=== PATIENT | female | born 1985 | race Caucasian/White ===

== ENCOUNTER 2018-02-01 10:37 | Emergency (ER) | payer MEDICAID, SELFPAY ==
[2018-02-01 10:39] VITALS: BP 91/56; PULSE 97; RESP 12; TEMP 36.4; BMI 17.6
[2018-02-01 11:33] VITALS: RESP 14
[2018-02-01 11:58] LABS: Pregnancy, Serum, hCG Quali. NEGATIVE Negative (0-9 Nonpreg)
[2018-02-01] MEDS: Dicyclomine 10 MG Capsule 20 MG PO (12:54)
[2018-02-01 13:01] LABS: Bedside Glucose 75 mg/dL (70-110)
--- NOTE | 2018-02-01 13:05 | RAD_ITS ---
STUDY: X-RAY - ACUTE ABDOMINAL SERIES REASON FOR EXAM: Female, 32 years old. Left lower quadrant pain with abdominal distention and constipation. TECHNIQUE: Single view of the chest. Supine, and erect view(s) of the abdomen were obtained. COMPARISON: None. FINDINGS: Hyperinflation. There is a 1.6 cm nodular density projected over the right mid lung. This most likely represents a nipple shadow. A faint nodular densities also seen overlying the left mid chest. Normal size heart. Normal mediastinum and osiris. Normal visualized pulmonary arteries. Normal visualized aortic arch and descending thoracic aorta. There is a moderate amount of colonic fecal material. I suspect right intrarenal calculi. The largest calculus measures 3.6 mm. Normal visualized osseous structures. RAD/Acute Abdomen Inc Chest IMPRESSION: Hyperinflation. Findings suggestive of bilateral nipple shadows. Moderate amount of fecal material is seen in the colon. Findings suggestive of right intrarenal calculi. Electronically Signed: Brian Mabry MD at 13:37 EDT Tel [phone], Service support ,
--- NOTE | 2018-02-01 14:59 | ED.DCSUM_ITS ---
- ER Visit Summary Date of Service: 02/01/18 Chief Complaint: Left lower quadrant pain History of Present Illness: The patient is a 32 F who presents with intermittent left lower quadrant pain. Severe the past couple of days. 6 weeks ago she was in [facility] had workup which included blood work, test, UA and CT of the abdomen pelvis. There was thought she may have had a UTI. Last normal menstrual period on January 03. She is sexually active and uses no form of control. She has history of renal calculi. She states she has not had a bowel movement past 3 days. Review of systems otherwise negative. Physical Examination: Patient is a thin 32-year-old woman with normal vital signs patient afebrile. Head is atraumatic normocephalic. Pupils are equal round reactive. Extraocular muscles are intact. TMs are pearly white with landmarks noted. Nares patent with no drainage. Posterior pharynx without erythema or exudate. Uvula is midline. There is no dysphonia or dysphasia. Trachea is midline. There is no stridor with auscultation of the neck. Heart is regular without murmur, gallop or rub. S1 and S2 are normal. Lungs are clear to auscultation with good movement of air bilaterally. Abdomen is tympanitic with decreased bowel sounds and tenderness greater left lower quadrant than anywhere else. There is no CVA tenderness noted. There is no umbilical or inguinal hernia or inguinal lymphadenopathy. No skin lesions are noted. Test Results: Serum test was negative. Three-view x-ray of the abdomen reveals significant fecal stasis Emergency Department Course and Treatment: Since patient reports pain for greater than 6 weeks with negative workup at outside facility including CAT scan believe this represents obstipation/constipation. Abdominal series was obtained and confirm suspicion. Treatment Plan: Mag citrate 10 ounces followed 4 hours later by a glass of MiraLAX every hour until patient has results Disposition: Discharged to home Impression: Intermittent acute abdominal pain secondary to constipation This note was generated with [employer] dictation software. It may contain incorrect words, spelling, and punctuation that were not noted in review of the chart prior to signing ED Disposition - Plan for ED Patient: Disposition: Home or Assisted Living Chief Complaint: Abd Pain Instructions: ED Constipation Referrals: Care Physician,No Primary [Primary Care Provider] - Additional Instructions: Drink 10 ounces of mag citrate. 4 hours after drinking the magnesium citrate drink a glass of MiraLAX. Drink a glass of MiraLAX every 1 hour while awake until you have results.
[2018-02-01 15:19] VITALS: RESP 17
== END 2018-02-01 15:20 | disposition home or self-care (01) ==
PROVIDERS: Emergency Provider Emergency Medicine
DX: K59.00 Constipation, unspecified (principal); Z87.442 Personal history of urinary calculi; Z72.0 Tobacco use
CPT/HCPCS: 74022; 82962; 84703; 99283; A4216

== ENCOUNTER → 2018-05-03 15:15 | Outpatient (CLI) | payer MEDICAID, SELFPAY ==
[2018-05-03 09:24] VITALS: BMI 17.4
[2018-05-03 16:00] LABS: Bacteria 0 SEEN /hpf (None Seen); Mucous, Urine 0 SEEN /hpf (<or=2+); Red Blood Cells-Urine 0 SEEN /hpf (0-5)
[2018-05-03 16:20] LABS: Color, Urine Yellow (Yellow); Glucose, Dipstick Normal (Normal); Ketone-Dipstick Negative (Negative); Leukocyte Esterase-Dipstick 100 /ul (Negative); Nitrite-Dipstick Negative (Negative); Occult Blood-Urine Negative /ul (Negative); Protein-Dipstick Negative (Negative); Urine Bilirubin Dipstick Negative (Negative); Urine Clarity Clear (Clear); Urine Urobilinogen Normal (Normal)
[2018-05-03 16:30] LABS: Squamous Epithelial Cells - UA 0-5 SEEN /hpf (5-10); White Blood Cells 0-5 SEEN /hpf (0-5)
== END ==
PROVIDERS: Referring Provider Physician Assistant Surgical; Visit Provider Physician Assistant Surgical
DX: R39.15 Urgency of urination (principal)
CPT/HCPCS: 81001; 87086

== ENCOUNTER → 2018-07-11 | Outpatient (CLI) | payer MEDICAID, SELFPAY ==
[2018-07-11 16:44] VITALS: BMI 17.4
[2018-07-14 16:02] LABS: HPV APTIMA, High Risk Negative (Negative)
== END | disposition home or self-care (01) ==
PROVIDERS: Referring Provider Nurse Practitioner Women's Health; Visit Provider Nurse Practitioner Women's Health
DX: Z12.4 Encounter for screening for malignant neoplasm of cervix (principal)
CPT/HCPCS: 87624; 88175; G0145

== ENCOUNTER → 2018-07-18 12:56 | Outpatient (CLI) | payer MEDICAID, SELFPAY ==
[2018-07-11 14:38] VITALS: BMI 16.9
[2018-07-11 16:44] VITALS: BMI 17.4
--- NOTE | 2018-07-18 12:58 | US_ITS ---
STUDY: ULTRASOUND TRANSVAGINAL CLINICAL: Female, 32 years old. Pelvic pain, left pelvic, 7 months TECHNIQUE: Transvaginal and transabdominal (Transvaginal imaging performed for enhanced visualization of uterus and endometrium, and posterior adnexal structures). COMPARISON: None. FINDINGS: The uterus is anteverted, 9.8 x 7.2 x 4.9 cm. Normal myometrial echotexture. Endometrium 13 mm, normal echotexture. There is no adnexal or cul-de-sac free fluid. Right ovary 38 x 41 x 31 mm, normal echotexture and vascularity, small physiologic follicles, dominant follicle 2.3 cm with simple cystic features. There is no right adnexal mass or suspicious cyst. Left ovary 33 x 24 x 17 mm, small physiologic follicles, no dominant follicle or cyst, normal vascularity. There is no left adnexal mass or suspicious cyst. US/Transvaginal Non- IMPRESSION: No acute intrapelvic process is evident. Normal features of the left ovary and adnexa. Dominant physiologic follicle of the right ovary 23 mm. Electronically Signed: Dylan Walton MD at 14:54 EDT Tel , Service support ,
--- NOTE | 2018-07-18 12:58 | US_ITS ---
STUDY: ULTRASOUND TRANSVAGINAL CLINICAL: Female, 32 years old. Pelvic pain, left pelvic, 7 months TECHNIQUE: Transvaginal and transabdominal (Transvaginal imaging performed for enhanced visualization of uterus and endometrium, and posterior adnexal structures). COMPARISON: None. FINDINGS: The uterus is anteverted, 9.8 x 7.2 x 4.9 cm. Normal myometrial echotexture. Endometrium 13 mm, normal echotexture. There is no adnexal or cul-de-sac free fluid. Right ovary 38 x 41 x 31 mm, normal echotexture and vascularity, small physiologic follicles, dominant follicle 2.3 cm with simple cystic features. There is no right adnexal mass or suspicious cyst. Left ovary 33 x 24 x 17 mm, small physiologic follicles, no dominant follicle or cyst, normal vascularity. There is no left adnexal mass or suspicious cyst. US/Pelvic (Non ) IMPRESSION: No acute intrapelvic process is evident. Normal features of the left ovary and adnexa. Dominant physiologic follicle of the right ovary 23 mm. Electronically Signed: Dylan Walton MD at 14:54 EDT Tel , Service support ,
== END ==
PROVIDERS: Referring Provider Nurse Practitioner Women's Health; Visit Provider Nurse Practitioner Women's Health
DX: R10.2 Pelvic and perineal pain (principal)
CPT/HCPCS: 76830; 76856; 93976

== ENCOUNTER 2018-07-21 11:36 | Emergency (ER) | payer MEDICAID, SELFPAY ==
[2018-07-11 16:44] VITALS: BMI 17.4
[2018-07-21 11:36] VITALS: BP 96/56; PULSE 104; RESP 18; TEMP 36.9; O2SAT 97; BMI 18.1
--- NOTE | 2018-07-21 11:56 | CT_ITS ---
STUDY: CT ABDOMEN AND PELVIS WITHOUT CONTRAST REASON FOR EXAM: Female, 32 years old. Nausea. RADIATION DOSAGE (If Supplied By Facility): CTDIvol = ( 3.36 ) mGy, DLP = ( 150.00 ) mGycm TECHNIQUE: Transaxial images were obtained from the dome of the diaphragm to the symphysis pubis without oral contrast, and without intravenous contrast. Sagittal and coronal images were reconstructed. Individualized dose optimization techniques were used for this CT. COMPARISON: None. FINDINGS: The visualized lung bases are unremarkable. The visualized portions of the heart are within normal limits. Normal liver. Normal gallbladder and extrahepatic biliary system. Normal spleen. Normal pancreas. Normal bilateral adrenal glands. There are multiple nonobstructive right intrarenal calculi. The largest measures 4.2 mm and is in the lower pole. 1 cm cyst in the lower pole of the right kidney. Scattered nonobstructive left intrarenal calculi. The largest measures 1.6 mm and is in the lower pole calyx. There is a small hiatal hernia. Normal small intestine. Normal colon. The appendix is visualized and appears normal. Normal abdominal aorta. Normal inferior vena cava. Normal retroperitoneum. Normal urinary bladder. I suspect a 2.5 cm x 2.6 cm right ovarian cyst. Normal abdominal wall. Normal osseous structures. CT/Abdomen/Pelvis without Cont IMPRESSION: Multiple bilateral renal calculi more prominent on the right side. 2.5 cm x 2.6 cm right ovarian cyst. Electronically Signed: Brian Mabry, at 13:45 EDT , Service support ,
--- NOTE | 2018-07-21 12:05 | ED.VISSUMM ---
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 she was told she had his abdominal pain related to ovarian cyst may be on the left, she is indicated she was restarted on control pills to help with this process, she went to sleep with her chronic massive abdominal discomfort then she woke with vomiting and diarrhea that was copious she could not keep anything down, the diarrhea has been watery as has the vomit there is been no blood she had no exposures to tainted food or individuals were sick no history of GI elements no fever no cough denies Physical Examination: [] Vital signs within normal range General, no distress resting comfortably HEENT is generally unremarkable The neck is supple no adenopathy Cardiovascular, regular rate and rhythm Lungs, clear bilateral Abdomen, soft nontender she has a nonspecific discomfort over her abdomen she indicates the pain is crampy in the course of the left flank across the suprapubic area to the right side of the abdomen and U-shaped distribution this is a pattern of pain she has had it seems worse now that she has vomiting and diarrhea Extremities, no clubbing cyanosis or edema Neurologic, awake alert answering questions appropriately moving all 4 extremities Test Results: [] Emergency Department Course and Treatment: [] All the above screening labs IV fluids imaging CT abdomen pelvis unremarkable UA hCG general screening labs unremarkable she does reports there was a 2.5 cm ovarian cyst recent ultrasound was generally unremarkable see that report, on evaluation she is resting complaint of vomiting or diarrhea here in the department and explained the test results to her that follow-up with her family physician she was started on Zofran force fluids and return for change in symptoms she is comfortable discharge home Treatment Plan: [] Disposition: [] Stable home Impression: [] Vomiting and diarrhea resolved, acute recurrent abdominal pain This note was generated with [employer] dictation software. It may contain incorrect words, spelling, and punctuation that were not noted in review of the chart prior to signing ED Disposition - Plan for ED Patient: Referrals: Care Physician,No Primary [Primary Care Provider] -
[2018-07-21] MEDS: 0.9% Normal Saline 1,000 ML 1000 ML IV (12:12)
[2018-07-21] MEDS: Morphine 4 MG/ML Syringe IV (12:13)
[2018-07-21] MEDS: Ondansetron 4 MG/2 ML Vial IV (12:13)
[2018-07-21 12:27] LABS: Absolute Lymphocyte Count 0.41 X10^3/ul (0.83-4.51); Absolute Neutrophil Count 11.1 X10^3/uL (2.0-7.7); Basophil# 0.01 X10^3/uL; Basophil% 0.1 % (0-1); Eosinophil# 0.04 X10^3/uL; Eosinophils% 0.3 % (0-5); Hematocrit 43.7 % (37-47); Hemoglobin 15.1 g/dl (12.0-15.0); Lymphocyte # 0.41 X10^3/ul (4.0); Lymphocyte % 3.3 % (19-41); Mean Corp Hgb Conc 34.6 g/gl (32-36); Mean Corpuscular Hgb 30.7 pg (27.0-32.0); Mean Corpuscular Volume 88.8 fL (81-99); Mean Platelet Vol. 9.6 fl (6.2-12.0); Monocyte# 0.67 X10^3/uL; Monocyte% 5.5 % (0-10); Neutrophil # 11.12 X10^3/uL (2.7-7.7); Neutrophil % 90.6 % (47-70); Platelet Count 243 K/mm3 (150-450); RBC Distribution Width CV 12.5 % (11.6-14.6); RBC Distribution Width SD 40.3 fl (35.1-43.9); Red Blood Count 4.92 M/mm3 (4.2-5.4); White Blood Count 12.3 K/mm3 (4.4-11.0)
[2018-07-21 12:31] LABS: Differential Indicated SCAN CRITERIA MET; POSITIVE COUNT NO; POSITIVE DIFFERENTIAL YES; POSITIVE MORPHOLOGY NO
[2018-07-21 12:36] LABS: AST(SGOT) 15 U/L (15-37); Alanine Aminotransfer ALT/SGPT 16 U/L (13-56); Albumin, Serum 4.3 g/dL (3.2-5.0); Alkaline Phosphatase 53 U/L (45-117); Anion Gap 4 (5-15); BUN 15 mg/dL (7-18); BUN/Creat Ratio 19.6 RATIO (10-20); Bilirubin, Direct 0.18 mg/dL (0.00-0.30); Chloride 108 mmol/L (98-107); Creatinine, Serum 0.76 mg/dL (0.55-1.02); EST Glomerular Filtration Rate 94 mL/min (>60); Est Glom Filt Rate - Afr Amer 114 mL/min (>60); Estimated Creatinine Clearance 69.75 ml/min; Globulin 3.3 g/dL (2.2-4.2); Glucose 85 mg/dL (74-106); Lipase 140 U/L (73-393); Potassium 3.7 mmol/L (3.5-5.1); Protein, Total 7.6 g/dL (6.4-8.2); Sodium Level 142 mmol/L (136-145)
[2018-07-21 12:59] LABS: Differential Comment SCANNED
[2018-07-21 13:07] LABS: Internal QC Validated? YES +Cl - CLEAR BKGD; Pregnancy, Serum, hCG Quali. NEGATIVE Negative
[2018-07-21 13:39] VITALS: PULSE 90; RESP 16
[2018-07-21 13:42] LABS: Bacteria 0 SEEN /hpf (None Seen)
[2018-07-21 13:50] LABS: Color, Urine Yellow (Yellow); Glucose, Dipstick Normal (Normal); Ketone-Dipstick 15 mg/dl (Negative); Leukocyte Esterase-Dipstick 25 /ul (Negative); Nitrite-Dipstick Negative (Negative); Occult Blood-Urine 25 /ul (Negative); Protein-Dipstick Negative (Negative); Urine Bilirubin Dipstick Negative (Negative); Urine Clarity Clear (Clear); Urine Urobilinogen Normal (Normal); Urine pH 6.5 (5.0 - 8.0)
[2018-07-21 13:51] LABS: Red Blood Cells-Urine 0-5 SEEN /hpf (0-5); White Blood Cells 0-5 SEEN /hpf (0-5)
[2018-07-21 13:52] LABS: Mucous, Urine RARE /hpf (<or=2+); Squamous Epithelial Cells - UA 0-5 SEEN /hpf (5-10)
--- NOTE | 2018-07-21 14:48 | ED.DEP ---
ED Disposition - Plan for ED Patient: Instructions: ED Abdominal Pain Unkn Cause Prescriptions: Ondansetron [Zofran Odt] 4 mg PO Q8H PRN PRN #10 tab PRN Reason: Nausea Referrals: Care Physician,No Primary [Primary Care Provider] - Additional Instructions: Follow-up with your outpatient providers for further management
== END 2018-07-21 15:04 | disposition home or self-care (01) ==
LOC: ED 12:14
PROVIDERS: Emergency Provider Emergency Medicine
DX: R11.2 Nausea with vomiting, unspecified (principal); R19.7 Diarrhea, unspecified; R10.9 Unspecified abdominal pain; Z79.3 Long term (current) use of hormonal contraceptives
CPT/HCPCS: 74176; 80048; 80076; 81001; 83690; 84703; 85025; 96361; 96374; 96375; 99283; J7030; J2405

== ENCOUNTER 2018-09-17 10:49 | Emergency (ER) | payer MEDICAID, SELFPAY ==
[2018-08-05 16:34] VITALS: BMI 18.1
[2018-09-17 10:50] VITALS: BP 100/67; PULSE 116; RESP 17; TEMP 36.6; O2SAT 100; BMI 18.5
[2018-09-17 10:53] VITALS: PULSE 116; TEMP 36.6
--- NOTE | 2018-09-17 11:08 | ED.VIS.GEN ---
History of Present Illness Chief Complaint: Flank Pain Informant: Patient, Family Onset: Days - 2 days Context: Gradual Onset Timing: Continuous Quality: Sharp and cramping Location: Right flank Current Severity: Severe Maximum Severity: Severe Worsened by: Food Relieved by: Nothing Associated Symptoms: Nausea vomiting diarrhea with dysuria and hematuria Narrative: 32-year-old female presenting to the emergency department with 2 days of intermittent sharp right flank pain, nausea, vomiting and diarrhea with associated dysuria and hematuria. No fevers. No melena or hematochezia or coffee-ground emesis or hematemesis. No chest pain or shortness of breath. Pain is sharp and cramping in nature. It is mostly in the right flank. She does also have pain in her right lower back. Nothing really makes it better or worse. She is a history of both ovarian cysts and kidney stones. She was started on the Depo-Provera approximately 6 weeks ago. She yesterday began to have small amount of hematuria and dysuria. Prior similar symptoms: Yes Recent Illness/Hospitalization: No Past Medical History - Allergies and Home Meds Allergies/Adverse Reactions: Allergies No Known Allergies Allergy (Verified 09/17/18 10:50) Primary Care Physician: Domenico Garcia MD [STAFF PHYSICIAN] - 3-5 Days Care Physician,No Primary [Primary Care Provider] - Prior records reviewed: Yes Past Medical History: - - kidney stones, ovarian cysts Surgical History: no surgical history Lives: With Family Smoking Status: Current every day smoker Alcohol: Occasional Drugs: None Review of Systems All systems negative except as indicated Gastrointestinal: Reports: Abdominal pain, Nausea, Vomiting, Diarrhea Genitourinary: Reports: Dysuria, Hematuria, - - right flank pain Musculoskeletal: Reports: Back pain Physical Exam Vital Signs/Narrative: Vital Signs Temp Pulse Resp BP Pulse Ox 09/17/18 10:50 97.9 F 116 H 17 100/67 100 Inital Vital Signs reviewed: Yes General: Well nourished, Well developed, No Acute Distress Head: Normocephalic, Atraumatic Eyes: Perrl, EOMI ENT: Moist mucous membranes Cardiovascular: Regular rhythm, No murmurs, Tachycardia Respiratory: No distress, CTA bilaterally, Chest nontender Abdomen: Soft, Nondistended, Normal bowel sounds, No masses, Tender - Right flank tender to palpation Back: Nontender. Negative for: CVA tenderness Extremities: Nontender, No edema Skin: Normal color, No rash Neurological: Alert, Oriented x3 Diagnostic/Tx/Re-eval - Medical Decision Making Patient's pain was treated with fluids Zofran Toradol and then subsequently a dose of morphine. Laboratory work-up including CBC, CMP and lipase were all unremarkable. Urinalysis is negative. CT abdomen and pelvis without contrast shows nephrolithiasis but no acute findings. Repeat abdominal exam soft and nontender. Patient is able to tolerate by mouth. Because of the patient's cramping pain vomiting and diarrhea do feel that symptoms are likely viral in nature. She is able to tolerate by mouth at this time. Will discharge home with Bentyl and Zofran. She will continue supportive care. Advised to follow-up in the next 2 to 3 days with primary care to which she was referred or return here to the emergency department for worsening symptoms which we discussed. ED Disposition - Plan for ED Patient: Disposition: Home or Assisted Living Diagnosis: Abdominal pain, Nausea vomiting and diarrhea Instructions: ED Abdominal Pain Unkn Cause, ED Gastroenteritis Viral Prescriptions: Hydrocodone Bitart/Apap 5-325 [[place] 5MG-325MG] 1 tab PO Q4H PRN PRN 2 Days #10 tab PRN Reason: Pain Ondansetron [Zofran Odt] 4 mg PO Q8H PRN PRN #10 tab PRN Reason: Nausea Dicyclomine HCl [Bentyl] 20 mg PO TIDAC #20 cap Referrals: Domenico Garcia MD [STAFF PHYSICIAN] - 3-5 Days Care Physician,No Primary [Primary Care Provider] -
--- NOTE | 2018-09-17 11:11 | ED.DCSUM_ITS ---
History of Present Illness Chief Complaint: Flank Pain Informant: Patient, Family Onset: Days - 2 days Context: Gradual Onset Timing: Continuous Quality: Sharp and cramping Location: Right flank Current Severity: Severe Maximum Severity: Severe Worsened by: Food Relieved by: Nothing Associated Symptoms: Nausea vomiting diarrhea with dysuria and hematuria Narrative: 32-year-old female presenting to the emergency department with 2 days of inte rmittent sharp right flank pain, nausea, vomiting and diarrhea with associated dysuria and hematuria. No fevers. No melena or hematochezia or coffee-ground emesis or hematemesis. No chest pain or shortness of breath. Pain is sharp and cramping in nature. It is mostly in the right flank. She does also have pain in her right lower back. Nothing really makes it better or worse. She is a history of both ovarian cysts and kidney stones. She was started on the Depo- Provera approximately 6 weeks ago. She yesterday began to have small amount of hematuria and dysuria. Prior similar symptoms: Yes Recent Illness/Hospitalization: No Past Medical History - Allergies and Home Meds Allergies/Adverse Reactions: Allergies No Known Allergies Allergy (Verified 09/17/18 10:50) Primary Care Physician: Domenico Garcia MD [STAFF PHYSICIAN] - 3-5 Days Care Physician,No Primary [Primary Care Provider] - Prior records reviewed: Yes Past Medical History: - - kidney stones, ovarian cysts Surgical History: no surgical history Lives: With Family Smoking Status: Current every day smoker Alcohol: Occasional Drugs: None Review of Systems All systems negative except as indicated Gastrointestinal: Reports: Abdominal pain, Nausea, Vomiting, Diarrhea Genitourinary: Reports: Dysuria, Hematuria, - - right flank pain Musculoskeletal: Reports: Back pain Physical Exam Vital Signs/Narrative: Vital Signs Temp Pulse Resp BP Pulse Ox 09/17/18 10:50 97.9 F 116 H 17 100/67 100 Inital Vital Signs reviewed: Yes General: Well nourished, Well developed, No Acute Distress Head: Normocephalic, Atraumatic Eyes: Perrl, EOMI ENT: Moist mucous membranes Cardiovascular: Regular rhythm, No murmurs, Tachycardia Respiratory: No distress, CTA bilaterally, Chest nontender Abdomen: Soft, Nondistended, Normal bowel sounds, No masses, Tender - Right flank tender to palpation Back: Nontender. Negative for: CVA tenderness Extremities: Nontender, No edema Skin: Normal color, No rash Neurological: Alert, Oriented x3 Diagnostic/Tx/Re-eval - Medical Decision Making Patient's pain was treated with fluids Zofran Toradol and then subsequently a dose of morphine. Laboratory work-up including CBC, CMP and lipase were all unremarkable. Urinalysis is negative. CT abdomen and pelvis without contrast shows nephrolithiasis but no acute findings. Repeat abdominal exam soft and nontender. Patient is able to tolerate by mouth. Because of the patient's cramping pain vomiting and diarrhea do feel that symptoms are likely viral in nature. She is able to tolerate by mouth at this time. Will discharge home with Bentyl and Zofran. She will continue supportive care. Advised to follow-up in the next 2 to 3 days with primary care to which she was referred or return here to the emergency department for worsening symptoms which we discussed. ED Disposition - Plan for ED Patient: Disposition: Home or Assisted Living Diagnosis: Abdominal pain, Nausea vomiting and diarrhea Instructions: ED Abdominal Pain Unkn Cause, ED Gastroenteritis Viral Prescriptions: Hydrocodone Bitart/Apap 5-325 [[place] 5MG-325MG] 1 tab PO Q4H PRN PRN 2 Days #10 tab PRN Reason: Pain Ondansetron [Zofran Odt] 4 mg PO Q8H PRN PRN #10 tab PRN Reason: Nausea Dicyclomine HCl [Bentyl] 20 mg PO TIDAC #20 cap Referrals: Domenico Garcia MD [STAFF PHYSICIAN] - 3-5 Days Care Physician,No Primary [Primary Care Provider] -
--- NOTE | 2018-09-17 11:15 | CT_ITS ---
STUDY: CT ABDOMEN AND PELVIS WITHOUT CONTRAST REASON FOR EXAM: Female, 32 years old. Right flank pain with burning sensation during urination RADIATION DOSAGE (If Supplied By Facility): CTDIvol = ( 6.04 ) mGy, DLP = ( 262.73 ) mGycm TECHNIQUE: Transaxial images were obtained from the dome of the diaphragm to the symphysis pubis without oral contrast, and without intravenous contrast. Sagittal and coronal images were reconstructed. Individualized dose optimization techniques were used for this CT. COMPARISON: 07/21/2018 FINDINGS: The visualized lung bases are unremarkable. The visualized portions of the heart are within normal limits. Normal liver. Normal gallbladder and extrahepatic biliary system. Normal spleen. Normal pancreas. Normal bilateral adrenal glands. There are small punctate bilateral renal calculi that are similar in size and number since the prior study. No hydronephrosis or ureteric calculi are seen. Normal visualized stomach. Normal small intestine. Normal colon. The appendix is visualized and appears normal. Normal abdominal aorta. Normal inferior vena cava. Normal retroperitoneum. Normal urinary bladder. Normal visualized uterus. Normal abdominal wall. Normal osseous structures. CT/Abdomen/Pelvis without Cont IMPRESSION: 1. Bilateral nephrolithiasis without hydronephrosis or ureteral calculi. Electronically Signed: Quintin Valerio MD at 12:17 EDT , Service support ,
[2018-09-17] MEDS: Ketorolac 15 MG/ML Vial IV (11:17)
[2018-09-17] MEDS: Ondansetron 4 MG/2 ML Vial IV (11:17)
[2018-09-17] MEDS: 0.9% Normal Saline 1,000 ML 1000 ML IV (11:17)
[2018-09-17 11:24] LABS: Absolute Lymphocyte Count 0.94 X10^3/ul (0.83-4.51); Absolute Neutrophil Count 3.4 X10^3/uL (2.0-7.7); Basophil# 0.03 X10^3/uL; Basophil% 0.6 % (0-1); Eosinophil# 0.17 X10^3/uL; Eosinophils% 3.5 % (0-5); Hematocrit 43.8 % (37-47); Hemoglobin 14.9 g/dl (12.0-15.0); Lymphocyte # 0.94 X10^3/ul (4.0); Lymphocyte % 19.3 % (19-41); Mean Corpuscular Hgb 30.5 pg (27.0-32.0); Mean Corpuscular Volume 89.8 fL (81-99); Mean Platelet Vol. 9.7 fl (6.2-12.0); Monocyte# 0.35 X10^3/uL; Monocyte% 7.2 % (0-10); Neutrophil # 3.38 X10^3/uL (2.7-7.7); Neutrophil % 69.4 % (47-70); POSITIVE COUNT NO; POSITIVE DIFFERENTIAL NO; POSITIVE MORPHOLOGY NO; Platelet Count 242 K/mm3 (150-450); RBC Distribution Width CV 12.5 % (11.6-14.6); RBC Distribution Width SD 40.6 fl (35.1-43.9); Red Blood Count 4.88 M/mm3 (4.2-5.4); White Blood Count 4.9 K/mm3 (4.4-11.0)
[2018-09-17 11:35] LABS: ALB/GLOB Ratio 1.2 RATIO (0.9-2.4); AST(SGOT) 13 U/L (15-37); Alanine Aminotransfer ALT/SGPT 16 U/L (13-56); Albumin, Serum 4.4 g/dL (3.2-5.0); Alkaline Phosphatase 45 U/L (45-117); Anion Gap 3 (5-15); BUN 12 mg/dL (7-18); Calcium,Total 9.2 mg/dL (8.5-10.1); Chloride 111 mmol/L (98-107); Creatinine, Serum 0.86 mg/dL (0.55-1.02); EST Glomerular Filtration Rate 82 mL/min (>60); Est Glom Filt Rate - Afr Amer 100 mL/min (>60); Estimated Creatinine Clearance 62.82 ml/min; Globulin 3.6 g/dL (2.2-4.2); Glucose 88 mg/dL (74-106); Lipase 225 U/L (73-393); Potassium 3.6 mmol/L (3.5-5.1); Sodium Level 141 mmol/L (136-145)
[2018-09-17 12:03] LABS: Bacteria 0 SEEN /hpf (None Seen); Mucous, Urine 0 SEEN /hpf (<or=2+); Red Blood Cells-Urine 0 SEEN /hpf (0-5)
[2018-09-17 12:06] LABS: Color, Urine Yellow (Yellow); Glucose, Dipstick Normal (Normal); Ketone-Dipstick Negative (Negative); Leukocyte Esterase-Dipstick 25 /ul (Negative); Nitrite-Dipstick Negative (Negative); Occult Blood-Urine 10 /ul (Negative); Protein-Dipstick Negative (Negative); Urine Bilirubin Dipstick Negative (Negative); Urine Clarity Clear (Clear); Urine Urobilinogen Normal (Normal); Urine pH 6.5 (5.0 - 8.0)
[2018-09-17 12:11] LABS: Internal QC Validated? YES +Cl - CLEAR BKGD; Pregnancy, Urine Negative Negative
[2018-09-17] MEDS: Morphine 4 MG/ML Syringe IV (12:12)
[2018-09-17 12:13] LABS: Squamous Epithelial Cells - UA 0-5 SEEN /hpf (5-10); White Blood Cells 0-5 SEEN /hpf (0-5)
--- NOTE | 2018-09-17 12:28 | ED.DEP ---
ED Disposition - Plan for ED Patient: Instructions: ED Gastroenteritis Viral, ED Abdominal Pain Unkn Cause Prescriptions: Hydrocodone Bitart/Apap 5-325 [[place] 5MG-325MG] 1 tab PO Q4H PRN PRN 2 Days #10 tab PRN Reason: Pain Ondansetron [Zofran Odt] 4 mg PO Q8H PRN PRN #10 tab PRN Reason: Nausea Dicyclomine HCl [Bentyl] 20 mg PO TIDAC #20 cap Referrals: Care Physician,No Primary [Primary Care Provider] -
--- NOTE | 2018-09-17 12:31 | ED.DEP ---
ED Disposition - Plan for ED Patient: Instructions: ED Abdominal Pain Unkn Cause, ED Gastroenteritis Viral Prescriptions: Hydrocodone Bitart/Apap 5-325 [[place] 5MG-325MG] 1 tab PO Q4H PRN PRN 2 Days #10 tab PRN Reason: Pain Ondansetron [Zofran Odt] 4 mg PO Q8H PRN PRN #10 tab PRN Reason: Nausea Dicyclomine HCl [Bentyl] 20 mg PO TIDAC #20 cap Referrals: Care Physician,No Primary [Primary Care Provider] - Domenico Garcia MD [STAFF PHYSICIAN] - 3-5 Days
[2018-09-17 12:47] VITALS: PULSE 110; RESP 17; TEMP 36.7; O2SAT 99
== END 2018-09-17 12:50 | disposition home or self-care (01) ==
PROVIDERS: Emergency Provider Physician Assistant Medical
DX: A08.4 Viral intestinal infection, unspecified (principal); Z87.442 Personal history of urinary calculi; N20.0 Calculus of kidney; F17.200 Nicotine dependence, unspecified, uncomplicated
CPT/HCPCS: 74176; 80053; 81001; 81025; 83690; 85025; 96361; 96374; 96375; 99284; J7030; J2405

== ENCOUNTER 2019-01-06 07:22 | Emergency (ER) | payer MEDICAID, SELFPAY ==
[2018-10-28 16:01] VITALS: BMI 18.5
[2019-01-06 07:22] VITALS: BP 101/62; PULSE 86; RESP 17; TEMP 36.8; O2SAT 96; BMI 40.6
--- NOTE | 2019-01-06 07:43 | CT_ITS ---
STUDY: CT ABDOMEN AND PELVIS WITH CONTRAST REASON FOR EXAM: Female, 33 years old. Several month history of lower abdominal pain with nausea and vomiting. RADIATION DOSAGE (If Supplied By Facility): CTDIvol = ( 10.84 ) mGy, DLP = ( 256.86 ) mGycm TECHNIQUE: Transaxial images were obtained from the dome of the diaphragm to the symphysis pubis with oral contrast. IV/Oral Isovue 300 100 was administered. Sagittal and coronal images were reconstructed. Individualized dose optimization techniques were used for this CT. COMPARISON: Comparison is made with prior examination dated September 17, 2018. FINDINGS: The visualized lung bases are unremarkable. The visualized portions of the heart are within normal limits. Normal liver. Normal gallbladder and extrahepatic biliary system. Normal spleen. Normal pancreas. Normal bilateral adrenal glands. Stable small nonobstructive bilateral intrarenal calculi more prominent on the right side. Stable 1 cm cyst in the right kidney. Normal visualized stomach. Normal small intestine. Normal colon. The appendix is visualized and appears normal. Normal abdominal aorta. Normal inferior vena cava. Normal retroperitoneum. Normal urinary bladder. Normal abdominal wall. Normal osseous structures. CT/Abdomen/Pelvis WITH Contrast IMPRESSION: Stable small nonobstructing bilateral intrarenal calculi. Stable right renal cysts. Electronically Signed: Brian Mabry, at 10:16 EDT , Service support ,
[2019-01-06 08:04] LABS: Bacteria 0 SEEN /hpf (None Seen)
[2019-01-06] MEDS: Morphine 4 MG/ML Syringe IV (08:10)
[2019-01-06] MEDS: 0.9% Normal Saline 1,000 ML 1000 ML IV (08:10)
[2019-01-06] MEDS: Ondansetron 4 MG/2 ML Vial IV (08:10)
[2019-01-06 08:15] LABS: Absolute Lymphocyte Count 0.64 X10^3/uL (0.83-4.51); Absolute Neutrophil Count 10.8 X10^3/uL (2.0-7.7); Basophil# 0.03 X10^3/uL; Basophil% 0.3 % (0-1); Eosinophil# 0.06 X10^3/uL; Eosinophils% 0.5 % (0-5); Hematocrit 44.9 % (37-47); Hemoglobin 15.2 g/dL (12.0-15.0); Lymphocyte # 0.64 X10^3/ul (4.0); Lymphocyte % 5.4 % (19-41); Mean Corp Hgb Conc 33.9 g/dL (32-36); Mean Corpuscular Hgb 30.8 pg (27.0-32.0); Mean Corpuscular Volume 91.1 fL (81-99); Mean Platelet Vol. 9.3 fl (6.2-12.0); Monocyte# 0.37 X10^3/uL; Monocyte% 3.1 % (0-10); NRBC Flagged by Analyzer 0 % (0-5); Neutrophil % 90.4 % (47-70); Platelet Count 240 K/mm3 (150-450); RBC Distribution Width CV 12.2 % (11.6-14.6); RBC Distribution Width SD 40.9 fl (35.1-43.9); Red Blood Count 4.93 M/mm3 (4.2-5.4); White Blood Count 11.9 K/mm3 (4.4-11.0)
[2019-01-06 08:17] LABS: Color, Urine Yellow (Yellow); Glucose, Dipstick Normal (Normal); Ketone-Dipstick 5 mg/dl (Negative); Leukocyte Esterase-Dipstick 100 /ul (Negative); Nitrite-Dipstick Negative (Negative); Occult Blood-Urine 25 /ul (Negative); Protein-Dipstick 15 mg/dl (Negative); Specific Gravity, Urine 1.025 (1.002-1.030); Urine Clarity Sl. Cloudy (Clear); Urine Urobilinogen Normal (Normal)
[2019-01-06 08:22] LABS: Urine Bilirubin Dipstick 3 mg/dL (Negative)
[2019-01-06 08:23] LABS: Mucous, Urine 2+ /hpf (<or=2+); Red Blood Cells-Urine 0-5 SEEN /hpf (0-5); Squamous Epithelial Cells - UA 0-5 SEEN /hpf (5-10); White Blood Cells 10-25 SEEN /hpf (0-5)
[2019-01-06 08:24] LABS: Calcium Oxalate Crystals Ur 1+ /hpf (<or=2+)
[2019-01-06 08:24] LABS: Internal QC Validated? YES +Cl - CLEAR BKGD; Pregnancy, Serum, hCG Quali. NEGATIVE Negative
--- NOTE | 2019-01-06 08:31 | ED.DCSUM_ITS ---
- ER Visit Summary Date of Service: 01/06/19 Chief Complaint: Abdominal pain History of Present Illness: The patient is a 33 F who presents with abdominal pain for the past week. Patient states the pain is sharp. Patient states it is over the left lower quadrant. Patient states the pain has been constant for the past week. States nothing makes it better or worse. Patient admits to some nausea and vomiting. Patient denies any hematemesis or coffee-ground emesis. Patient does admit to some diarrhea but denies any melena or hematochezia. Patient also admits to some dysuria and urinary frequency. Patient is on Depo- Provera injections. Patient states that she is currently on her menstrual perio d and states this started after she recently received her Depo-Provera injection Physical Examination: Vital signs are stable. Patient is afebrile. Patient is in no acute distress. Oral mucosa is pink and moist. Neck is supple. Trachea is midline. There is no JVD noted. Heart with regular rate and rhythm. Lungs are clear and equal bilaterally. Abdomen is soft. Bowel sounds are normal. There is left lower quadrant tenderness. There is no rebound or guarding noted. Cranial nerves II through XII are intact. There are no focal motor or sensory deficits noted. Test Results: CBC shows slight leukocytosis of 11.9. Comprehensive metabolic profile was within normal limits. Urinalysis does show slight evidence of urinary tract infection. The skin of the abdomen and pelvis shows bilateral intrarenal calculi that are unchanged. There is a small right renal cyst. Emergency Department Course and Treatment: Patient is currently taking Bactrim for urinary tract infection. Patient was instructed to continue this until gone. Patient was instructed to follow-up with her primary care physician in 5 to 7 days. Patient was instructed to continue her Zofran as needed for nausea or vomiting. Patient understood and was agreeable with the plan. All questions were answered. Disposition: Discharge home Impression: Abdominal pain This note was generated with Gota[employer] dictation software. It may contain incorrect words, spelling, and punctuation that were not noted in review of the chart prior to signing ED Disposition - Plan for ED Patient: Disposition: Home or Assisted Living Diagnosis: Abdominal pain Instructions: ABDOMINAL PAIN, Unknown Cause, (Female) Referrals: Care Physician,No Primary [Primary Care Provider] - Surinder Erickson MD [STAFF PHYSICIAN] - 5-7 Days
[2019-01-06 08:34] LABS: ALB/GLOB Ratio 1.3 RATIO (0.9-2.4); AST(SGOT) 15 U/L (15-37); Alanine Aminotransfer ALT/SGPT 18 U/L (13-56); Albumin, Serum 4.2 g/dL (3.2-5.0); Alkaline Phosphatase 49 U/L (45-117); Anion Gap 5 (5-15); BUN 14 mg/dL (7-18); BUN/Creat Ratio 15.8 RATIO (10-20); Calcium,Total 8.7 mg/dL (8.5-10.1); Chloride 111 mmol/L (98-107); Creatinine, Serum 0.89 mg/dL (0.55-1.02); EST Glomerular Filtration Rate 79 mL/min (>60); Est Glom Filt Rate - Afr Amer 96 mL/min (>60); Estimated Creatinine Clearance 132.15 ml/min; Globulin 3.3 g/dL (2.2-4.2); Glucose 84 mg/dL (74-106); Lipase 143 U/L (73-393); Protein, Total 7.5 g/dL (6.4-8.2); Sodium Level 143 mmol/L (136-145)
[2019-01-06 10:52] VITALS: BP 90/56; PULSE 95; O2SAT 100
== END 2019-01-06 11:14 | disposition home or self-care (01) ==
PROVIDERS: Emergency Provider Emergency Medicine
DX: R10.32 Left lower quadrant pain (principal); R11.2 Nausea with vomiting, unspecified; N20.0 Calculus of kidney; N28.1 Cyst of kidney, acquired; N39.0 Urinary tract infection, site not specified; Z72.0 Tobacco use
CPT/HCPCS: 74177; 80053; 81001; 83690; 84703; 85025; 96361; 96374; 96375; 99284; J7030; Q9967; A4216; J2405

== ENCOUNTER 2023-11-15 20:05 | Outpatient (CLI) | payer MEDICAID, SELFPAY ==
[2023-11-15 20:12] VITALS: BMI 23.3
[2023-11-15 20:18] VITALS: PULSE 177; O2SAT 82
[2023-11-15 20:19] VITALS: BP 109/70; PULSE 107; RESP 20; TEMP 38.1
[2023-11-15 20:20] VITALS: PULSE 114; O2SAT 97
[2023-11-15 20:25] VITALS: PULSE 123; O2SAT 97
--- NOTE | 2023-11-15 20:34 | OB.TRI.NOTE ---
HPI - General General Date of Service: 11/15/23 HPI Narrative MAURICE PUGH, is a 37 F @ 33 weeks who presents c/o abdominal pain and back pain- pt reports has had multiple UTIs in . pt reports feels like she is sick, no other sick contacts at home. pt reports N/V, no changes in BMs. pt reports does have h/o Kidney stones. pt reports does still have appendix. pt states has vomited about 4-6 times today, takes zofran at home, last time she took it was 7 am. took tylenol around 1pm without relief, uses heating pad which gave her some relief. rates pain 8/10. denies vaginal bleeding or LOF. good FM. No other complications with . PFSH PFSH Medical History (Updated 11/15/23 @ 20:[address] Angelika Box MD) Kidney stones Back pain Asthma Migraines Home Medications ?Medication ?Instructions ?Recorded ?Last Taken ?Type medroxyprogesterone 150 mg/mL 150 mg IM [id number] #1 mL 07/20/18 Unknown Rx intramuscular suspension (Depo-Provera) dicyclomine 10 mg capsule 20 mg (2 x 10 mg) PO TIDAC #20 caps 09/17/18 Unknown Rx ondansetron 4 mg disintegrating 4 mg PO Q8H PRN PRN Nausea #10 tabs 09/17/18 Unknown Rx tablet Allergy/AdvReac Type Severity Reaction Status Date / Time No Known Allergies Allergy Verified 01/06/19 07:22 Social History (Updated 07/11/18 @ 16:44 by Margie Lake [employer]ITION[employer] HER[employer]IST, [employer]ITIONAL [employer] HERBALIST-C) Smoking Status: Current every day smoker alcohol intake: never substance use type: does not use caffeine: Yes Type: coffee Number of servings: 3 what type of physical activity do you participate in: none seatbelt use: always do you feel safe at home: Yes History 3 Elective abortions 0 Hx Para 3 Spontaneous abortions 0 Hx # Term Pregnancies 3 Ectopic pregnancies 0 Hx # Pregnancies 0 Multiple births 0 # of living children 3 Past Pregnancies Del. Date Name GA/Weeks Outcome Route Bth Weight Gen Labor Lgth Anesthesia Del Locatn Provider FOB Unknown Sue 2009 live - full term Female Unknown Carolynn 2014 live - full term Female Unknown Gloria 2011 live - full term Female Physical Exam Narrative gen: female appears to be uncomfortable in bed- fever 100.6F abd: gravid, diffusely tender. No rebound, no guarding Back: tender to palpation ? CVA tenderness- pt is difficult to assess b/c even lower manipulation of SI joint causes her discomfort. VE: closed, and thick Const General Appearance: cooperative NST FHR Rate Baby A Baseline: 150 Variability:: Moderate Accelerations:: 15 x 15 Decelerations:: None NST Reactive:: Yes Uterine Activity:: Q2-4min Assessment & Plan (1) Abdominal pain affecting : (2) Back pain affecting in third trimester: (3) UTI in , antepartum: (4) 33 weeks gestation of : (5) uterine contractions in third trimester, antepartum: (6) Unspecified maternal pyrexia, antepartum: PLAN: Plan @ 33 weeks, abdominal and back pain 1) will get CBC, CMP, Urine culture, urinalysis - previous urine cultures at [facility] + E. Coli (susceptible to ceftriaxone) 2) Consider imaging once labs are resulted - renal ultrasound and Abdominal Ultrasound vs CT 3) start IVF- LR 1 liter Bolus 4) Zofran 4mg for nausea 5) tylenol 1000mg PO x 1 6) monitor FHR/TOCO, VS
[2023-11-15] MEDS: Lactated Ringers 1,000 ML 999 ML IV (20:40)
[2023-11-15 20:56] VITALS: PULSE 129; TEMP 38.1; O2SAT 97
[2023-11-15] MEDS: Acetaminophen 500 MG Tablet 1000 MG PO (20:57)
[2023-11-15] MEDS: Ondansetron 4 MG/2 ML Vial IV (20:57)
[2023-11-15 20:59] LABS: Color, Urine Yellow (Yellow); Glucose, Dipstick Normal (Normal); Ketone-Dipstick 5 mg/dl (Negative); Leukocyte Esterase-Dipstick 500 /ul (Negative); Nitrite-Dipstick Positive (Negative); Occult Blood-Urine 10 /ul (Negative); Protein-Dipstick 30 mg/dl (Negative); Urine Bilirubin Dipstick Negative (Negative); Urine Clarity Cloudy (Clear); Urine Urobilinogen 1 mg/dl (Normal)
[2023-11-15 21:04] LABS: Absolute Lymphocyte Count 0.53 X10^3/uL (0.83-4.51); Basophil# 0.03 X10^3/uL; Basophil% 0.3 % (0-1); Eosinophil# 0.01 X10^3/uL; Eosinophils% 0.1 % (0-5); Hematocrit 31.1 % (37-47); Hemoglobin 10.7 g/dL (12.0-15.0); Lymphocyte # 0.53 X10^3/ul (0.83-4.51); Lymphocyte % 4.7 % (19-41); Mean Corp Hgb Conc 34.4 g/dL (32-36); Mean Corpuscular Hgb 31.7 pg (27.0-32.0); Mean Platelet Vol. 10.3 fl (6.2-12.0); Monocyte% 6.2 % (0-10); NRBC Flagged by Analyzer 0 % (0-5); Neutrophil # 9.97 X10^3/uL (2.7-7.7); Neutrophil % 88.1 % (47-70); POSITIVE DIFFERENTIAL YES; Platelet Count 164 K/mm3 (150-450); RBC Distribution Width CV 12.9 % (11.6-14.6); RBC Distribution Width SD 43.4 fl (35.1-43.9); Red Blood Count 3.38 M/mm3 (4.2-5.4); White Blood Count 11.3 K/mm3 (4.4-11.0)
[2023-11-15 21:22] LABS: ALB/GLOB Ratio 0.7 RATIO (0.9-2.4); AST(SGOT) 20 U/L (15-37); Alanine Aminotransfer ALT/SGPT 16 U/L (13-56); Albumin, Serum 2.6 g/dL (3.2-5.0); Alkaline Phosphatase 138 U/L (45-117); Anion Gap 8 (5-15); BUN 10 mg/dL (7-18); BUN/Creat Ratio 17.5 RATIO (10-20); Calcium,Total 8.7 mg/dL (8.5-10.1); Chloride 109 mmol/L (98-107); Creatinine, Serum 0.57 mg/dL (0.55-1.02); EST Glomerular Filtration Rate 127 mL/min (>60); Est Glom Filt Rate - Afr Amer 154 mL/min (>60); Estimated Creatinine Clearance 98.95 ml/min; Globulin 3.9 g/dL (2.2-4.2); Glucose 88 mg/dL (74-106); Potassium 3.6 mmol/L (3.5-5.1); Protein, Total 6.5 g/dL (6.4-8.2); Sodium Level 140 mmol/L (136-145)
[2023-11-15] MEDS: Ceftriaxone 2 GM in 0.9% Normal Saline (50mL MB+) 50 ML IV (22:32)
[2023-11-15 23:09] VITALS: BP 96/55; PULSE 95; RESP 18; TEMP 37.5; O2SAT 97
== END 2023-11-15 23:20 | disposition home or self-care (01) ==
LOC: WPOUT 20:09 → WP 20:09
PROVIDERS: Referring Provider Obstetrics & Gynecology; Visit Provider Obstetrics & Gynecology
DX: O99.891 Other specified diseases and conditions complicating pregnancy (principal); O99.513 Diseases of the respiratory system complicating pregnancy, third trimester; J45.909 Unspecified asthma, uncomplicated; Z87.442 Personal history of urinary calculi; F17.290 Nicotine dependence, other tobacco product, uncomplicated; O99.333 Smoking (tobacco) complicating pregnancy, third trimester; Z3A.33 33 weeks gestation of pregnancy; R10.9 Unspecified abdominal pain; M54.9 Dorsalgia, unspecified; O23.43 Unspecified infection of urinary tract in pregnancy, third trimester; O47.03 False labor before 37 completed weeks of gestation, third trimester; O26.893 Other specified pregnancy related conditions, third trimester; R50.9 Fever, unspecified
CPT/HCPCS: 96374; 96361; 36415; 59025; 59050; 80053; 81002; 85025; 87077; 87086; 87088; 87186; 99221; J7120; G0378; J0696; J2405

== ENCOUNTER 2023-12-20 21:50 | Outpatient (CLI) | payer MEDICAID, SELFPAY ==
[2023-12-20 21:57] VITALS: BMI 23.9
[2023-12-20 22:09] VITALS: BP 108/60; PULSE 88; RESP 14; TEMP 37; O2SAT 98
[2023-12-20] MEDS: Lactated Ringers 1,000 ML 999 ML IV (22:30)
[2023-12-20 22:44] LABS: Absolute Lymphocyte Count 1.71 X10^3/uL (0.83-4.51); Absolute Neutrophil Count 7.1 X10^3/uL (2.0-7.7); Basophil# 0.02 X10^3/uL; Basophil% 0.2 % (0-1); Eosinophil# 0.09 X10^3/uL; Eosinophils% 0.9 % (0-5); Hematocrit 31.1 % (37-47); Hemoglobin 10.4 g/dL (12.0-15.0); Lymphocyte # 1.71 X10^3/ul (0.83-4.51); Mean Corp Hgb Conc 33.4 g/dL (32-36); Mean Corpuscular Hgb 30.6 pg (27.0-32.0); Mean Corpuscular Volume 91.5 fL (81-99); Mean Platelet Vol. 10.1 fl (6.2-12.0); Monocyte# 0.58 X10^3/uL; Monocyte% 6.1 % (0-10); NRBC Flagged by Analyzer 0 % (0-5); Neutrophil # 7.06 X10^3/uL (2.7-7.7); Neutrophil % 74.2 % (47-70); Platelet Count 209 K/mm3 (150-450); RBC Distribution Width CV 12.8 % (11.6-14.6); RBC Distribution Width SD 42.4 fl (35.1-43.9); White Blood Count 9.5 K/mm3 (4.4-11.0)
[2023-12-20] MEDS: Acetaminophen 500 MG Tablet 1000 MG PO (22:44)
[2023-12-20] MEDS: Ondansetron 4 MG/2 ML Vial IV (22:44)
[2023-12-21 02:37] LABS: ROM Internal Control Test YES-OK TO RESULT pt. (Internal QC); ROM Patient Test Negative (Negative); Record Kit Lot#, ROM+ K1660
--- NOTE | 2023-12-21 04:54 | OB.TRI.NOTE ---
HPI - General General Date of Admission: 12/20/23 Date of Service: 12/20/23 Chief Complaint: contractions HPI Narrative MAURICE PUGH, is a 38 F who presents 38-2/7 weeks gestation with complaint of contractions. She also thought maybe she had some mucousy versus watery vaginal discharge. No gross vaginal bleeding. Good movement. She also had emesis after she vomited her dinner tonight. She denies any sick contacts. No diarrhea. No continued emesis. Some left lower quadrant pain when she arrived at [facility] since she has been here. Maternal Data Information Final DEMIAN: [birth year] Gestational age: 38 2/7 [facility] Medical History (Updated 12/21/23 @ 04:[address] Claire Sinclair MD) Kidney stones Back pain Asthma Migraines Home Medications ?Medication ?Instructions ?Recorded ?Last Taken ?Type acetaminophen 500 mg capsule 1,000 mg PO Q6H PRN fever or pain 11/15/23 11/15/23 13:00 History famotidine 20 mg tablet 20 mg PO BID heartburn 11/15/23 12/20/23 History [id number] 1 mg 1 tab PO DAILY 11/15/23 12/20/23 History tablet Allergy/AdvReac Type Severity Reaction Status Date / Time No Known Allergies Allergy Verified 12/20/23 22:13 Social History (Updated 07/11/18 @ 16:44 by Margie Lake NP, HEALTHCARE ADVISORY SERVICES MANAGER-C) Smoking Status: Current every day smoker alcohol intake: never substance use type: does not use caffeine: Yes Type: coffee Number of servings: 3 what type of physical activity do you participate in: none seatbelt use: always do you feel safe at home: Yes History 3 Elective abortions 0 Hx Para 3 Spontaneous abortions 0 Hx # Term Pregnancies 3 Ectopic pregnancies 0 Hx # Pregnancies 0 Multiple births 0 # of living children 3 Past Pregnancies Del. Date Name GA/Weeks Outcome Route Bth Weight Gen Labor Lgth Anesthesia Del Locatn Provider FOB Unknown Sue 2009 live - full term Female Unknown Carolynn2014 live - full term Female Unknown Gloria 2011 live - full term Female Physical Exam Narrative Abdomen soft, nondistended, gravid, no rebound or guarding. Contractions are palpable. Extremities trace edema. Cervical exam 3, 50, -3, medium consistency and mid position Const alert and no apparent distress NST FHR Rate Baby A Baseline: 130 Variability:: Moderate Accelerations:: 15 x 15 Decelerations:: Variable (Appears to be 1 variable with maternal repositioning versus prolonged deceleration) NST Reactive:: Yes FHR Category:: Category I Uterine Activity:: Irregular contractions. Assessment & Plan (1) False labor after 37 completed weeks of gestation: PLAN: Patient given IV fluid bolus, Tylenol and Zofran due to emesis and contractions. Continue to have irregular contractions. Watched for several hours no evidence of cervical change. She did have 1 questionable deceleration versus variability with maternal repositioning with a long contraction. However after that she had regular palpable contractions and no further decelerations resulting in a negative [employer] for the remainder of her stay and category 1 heart tones for the remainder of her stay. DC home with labor precautions and kick counts. Follow-up in the office as scheduled or as needed. CBC and ROM reviewed (2) 37 weeks gestation of : (3) High-risk , elderly multigravida in third trimester:
== END 2023-12-21 03:30 | disposition home or self-care (01) ==
LOC: WP 12-21 03:25 → WPOUT 12-21 13:16
PROVIDERS: Visit Provider Obstetrics & Gynecology
DX: O47.1 False labor at or after 37 completed weeks of gestation (principal); O99.333 Smoking (tobacco) complicating pregnancy, third trimester; F17.200 Nicotine dependence, unspecified, uncomplicated; Z3A.38 38 weeks gestation of pregnancy; O09.523 Supervision of elderly multigravida, third trimester
CPT/HCPCS: 96374; 96361; 59025; 59050; 84112; 85025; 99221; J7120; G0378; J2405

== ENCOUNTER 2023-12-26 07:23 | Inpatient (IN) | payer MEDICAID, SELFPAY ==
[2023-12-26] VITALS (91 sets, daily range): BP systolic 79–125; BP diastolic 45–69; PULSE 64–129; RESP 14–17; TEMP 36.3–37.1; O2SAT 89–100; BMI 23.4
[2023-12-26] MEDS: Lactated Ringers 1,000 ML 50 ML IV (08:05)
[2023-12-26] MEDS: Oxytocin 15 Units/NS 250ml 15 UNITS/250 ML IV.SOLN 2 UNITS IV (08:22)
[2023-12-26] MEDS: Mag /Aluminum/Simeth WCH UDC 30 ML ORAL.SUSP PO ×2 (08:37→13:40)
[2023-12-26 08:52] LABS: Absolute Lymphocyte Count 1.13 X10^3/uL (0.83-4.51); Absolute Neutrophil Count 6.2 X10^3/uL (2.0-7.7); Basophil# 0.03 X10^3/uL; Basophil% 0.4 % (0-1); Eosinophil# 0.09 X10^3/uL; Eosinophils% 1.1 % (0-5); Hematocrit 33.2 % (37-47); Hemoglobin 11.1 g/dL (12.0-15.0); Lymphocyte # 1.13 X10^3/ul (0.83-4.51); Mean Corp Hgb Conc 33.4 g/dL (32-36); Mean Corpuscular Hgb 30.7 pg (27.0-32.0); Mean Platelet Vol. 10.1 fl (6.2-12.0); Monocyte% 7.4 % (0-10); NRBC Flagged by Analyzer 0 % (0-5); Neutrophil # 6.16 X10^3/uL (2.7-7.7); Neutrophil % 76.4 % (47-70); Platelet Count 192 K/mm3 (150-450); RBC Distribution Width CV 12.9 % (11.6-14.6); Red Blood Count 3.61 M/mm3 (4.2-5.4); White Blood Count 8.1 K/mm3 (4.4-11.0)
[2023-12-26] MEDS: Lactated Ringers 1,000 ML 999 ML IV (09:55)
[2023-12-26 10:09] LABS: Syphilis Antibodies Non-reactive
[2023-12-26] MEDS: LACTATED RINGERS 500 ML 999 ML IV ×3 (11:31→20:12)
[2023-12-26] MEDS: fentaNYL-bupivacaine (epidural) 100 ML BAG EPIDURAL (12:30)
--- NOTE | 2023-12-26 13:09 | PCM.HP.OB ---
HPI - General General Date of Admission: 12/26/23 Date of Service: 12/26/23 Chief Complaint: induction HPI Narrative MAURICE PUGH, is a 38 F who presents induction of labor Maternal Data Information Final DEMIAN: [birth year] Gestational age: 39+1 PFSH PFSH Medical History AMA (advanced maternal age) multigravida 35+ HPV (human papilloma virus) infection History of recurrent UTIs Kidney stones Back pain Asthma Migraines Home Medications ?Medication ?Instructions ?Recorded ?Last Taken ?Type acetaminophen 500 mg capsule 1,000 mg PO Q6H PRN fever or pain 11/15/23 11/15/23 13:00 History famotidine 20 mg tablet 20 mg PO BID heartburn 11/15/23 12/25/23 08:00 History [id number] 1 mg 1 tab PO DAILY 11/15/23 12/25/23 08:00 History tablet cephalexin 500 mg capsule mg PO .500 UTI 12/26/23 12/25/23 08:00 History Allergy/AdvReac Type Severity Reaction Status Date / Time No Known Allergies Allergy Verified 12/26/23 07:42 Surgical History History of surgery Social History Smoking Status: Former smoker alcohol intake: never substance use type: does not use caffeine: Yes Type: coffee Number of servings: 3 what type of physical activity do you participate in: none seatbelt use: always do you feel safe at home: Yes History 5 Elective abortions 0 Hx Para 3 Spontaneous abortions 0 Hx # Term Pregnancies 3 Ectopic pregnancies 0 Hx # Pregnancies 0 Multiple births 0 # of living children 3 Past Pregnancies Del. Date Name GA/Weeks Outcome Route Bth Weight Infant Gen Labor Lgth Anesthesia Del Locatn Provider FOB Unknown Sue 2009 live - full term Female Unknown Carolynn 2014 live - full term Female Unknown Gloria2011 live - full term Female NST FHR Rate Baby A Baseline: 135 Variability:: Moderate Accelerations:: 15 x 15 Decelerations:: None NST Reactive:: Yes FHR Category:: Category I Uterine Activity:: irregular ROS Constitutional Constitutional: Denies fatigue, fever(s) or malaise Eyes Eyes: Denies change in vision ENT HEENT: Denies dizziness or headache(s) Cardiovascular Cardiovascular: Denies chest pain, dyspnea or lightheadedness Respiratory/Chest Respiratory/Chest: Denies cough or dyspnea Gastrointestinal Gastrointestinal: Denies change in bowel habits Genitourinary Genitourinary: Denies burning urination or genital lesions Integumentary Integumentary: Denies rash Neurologic Neurologic: Denies confusion, dizziness, headache(s), numbness or weakness Vital Signs Vital Signs Vital Signs: 12/26/23 07:39 12/26/23 07:39 12/26/23 07:39 Temperature Temperature Source Pulse Rate 83 Respiratory Rate Blood Pressure 123/60 H BP Systolic 123 BP Diastolic 60 Pulse Ox 100 12/26/23 07:39 12/26/23 07:39 12/26/23 07:39 Temperature Temperature Source Temporal Pulse Rate 83 Respiratory Rate 16 Blood Pressure BP Systolic BP Diastolic Pulse Ox 12/26/23 07:39 12/26/23 07:44 12/26/23 07:44 Temperature 97.6 F L Temperature Source Pulse Rate 103 H Respiratory Rate Blood Pressure BP Systolic BP Diastolic Pulse Ox 100 12/26/23 09:47 12/26/23 09:47 12/26/23 09:47 Temperature Temperature Source Temporal Pulse Rate Respiratory Rate 16 Blood Pressure BP Systolic BP Diastolic Pulse Ox 100 12/26/23 09:47 12/26/23 09:48 12/26/23 09:48 Temperature 97.6 F L Temperature Source Pulse Rate 74 Respiratory Rate Blood Pressure 109/67 BP Systolic 109 BP Diastolic 67 Pulse Ox 12/26/23 10:32 12/26/23 10:32 12/26/23 10:33 Temperature Temperature Source Pulse Rate 88 85 Respiratory Rate Blood Pressure BP Systolic BP Diastolic Pulse Ox 93 12/26/23 10:33 12/26/23 10:38 12/26/23 10:38 Temperature Temperature Source Pulse Rate 86 Respiratory Rate Blood Pressure BP Systolic BP Diastolic Pulse Ox 98 100 12/26/23 10:43 12/26/23 10:43 12/26/23 10:48 Temperature Temperature Source Pulse Rate 93 83 Respiratory Rate Blood Pressure BP Systolic BP Diastolic Pulse Ox 100 12/26/23 10:48 12/26/23 10:52 12/26/23 10:52 Temperature Temperature Source Pulse Rate 90 Respiratory Rate Blood Pressure 109/60 BP Systolic 109 BP Diastolic 60 Pulse Ox 100 12/26/23 10:53 12/26/23 10:53 12/26/23 10:57 Temperature Temperature Source Pulse Rate 87 Respiratory Rate Blood Pressure 103/65 BP Systolic 103 BP Diastolic 65 Pulse Ox 100 12/26/23 10:57 12/26/23 10:58 12/26/23 10:58 Temperature Temperature Source Pulse Rate 87 87 Respiratory Rate Blood Pressure BP Systolic BP Diastolic Pulse Ox 100 12/26/23 11:02 12/26/23 11:02 12/26/23 11:03 Temperature Temperature Source Pulse Rate 82 88 Respiratory Rate Blood Pressure 110/68 BP Systolic 110 BP Diastolic 68 Pulse Ox 12/26/23 11:03 12/26/23 11:08 12/26/23 11:08 Temperature Temperature Source Pulse Rate 94 Respiratory Rate Blood Pressure 111/64 BP Systolic 111 BP Diastolic 64 Pulse Ox 100 12/26/23 11:08 12/26/23 11:13 12/26/23 11:13 Temperature Temperature Source Pulse Rate 88 Respiratory Rate Blood Pressure BP Systolic BP Diastolic Pulse Ox 100 100 12/26/23 11:14 12/26/23 11:14 12/26/23 11:18 Temperature Temperature Source Pulse Rate 90 87 Respiratory Rate Blood Pressure 111/61 BP Systolic 111 BP Diastolic 61 Pulse Ox 12/26/23 11:18 12/26/23 11:19 12/26/23 11:19 Temperature Temperature Source Pulse Rate 94 Respiratory Rate Blood Pressure 109/62 BP Systolic 109 BP Diastolic 62 Pulse Ox 100 12/26/23 11:19 12/26/23 11:23 12/26/23 11:23 Temperature Temperature Source Pulse Rate 95 Respiratory Rate 16 Blood Pressure BP Systolic BP Diastolic Pulse Ox 100 12/26/23 11:25 12/26/23 11:25 12/26/23 11:25 Temperature Temperature Source Pulse Rate 87 Respiratory Rate 15 Blood Pressure 91/50 L BP Systolic 91 BP Diastolic 50 Pulse Ox 12/26/23 11:25 12/26/23 11:28 12/26/23 11:28 Temperature Temperature Source Pulse Rate 115 H Respiratory Rate Blood Pressure BP Systolic BP Diastolic Pulse Ox 100 100 12/26/23 11:28 12/26/23 11:28 12/26/23 11:28 Temperature Temperature Source Temporal Pulse Rate 104 H Respiratory Rate Blood Pressure 83/51 L BP Systolic 83 BP Diastolic 51 Pulse Ox 12/26/23 11:28 12/26/23 11:28 12/26/23 11:33 Temperature 98.3 F Temperature Source Pulse Rate Respiratory Rate 16 Blood Pressure 89/55 L BP Systolic 89 BP Diastolic 55 Pulse Ox 12/26/23 11:33 12/26/23 11:33 12/26/23 11:33 Temperature Temperature Source Pulse Rate 90 Respiratory Rate 15 Blood Pressure BP Systolic BP Diastolic Pulse Ox 100 12/26/23 11:38 12/26/23 11:38 12/26/23 11:38 Temperature Temperature Source Pulse Rate 89 Respiratory Rate Blood Pressure 89/55 L BP Systolic 89 BP Diastolic 55 Pulse Ox 100 12/26/23 11:38 12/26/23 11:43 12/26/23 11:43 Temperature Temperature Source Pulse Rate 93 Respiratory Rate 17 Blood Pressure BP Systolic BP Diastolic Pulse Ox 100 12/26/23 11:43 12/26/23 11:43 12/26/23 11:43 Temperature Temperature Source Pulse Rate 99 Respiratory Rate 16 Blood Pressure 87/52 L BP Systolic 87 BP Diastolic 52 Pulse Ox 12/26/23 11:48 12/26/23 11:48 12/26/23 11:53 Temperature Temperature Source Pulse Rate 98 78 Respiratory Rate Blood Pressure BP Systolic BP Diastolic Pulse Ox 100 12/26/23 11:53 12/26/23 11:54 12/26/23 11:54 Temperature Temperature Source Pulse Rate 84 Respiratory Rate Blood Pressure 88/55 L BP Systolic 88 BP Diastolic 55 Pulse Ox 100 12/26/23 11:54 12/26/23 11:58 12/26/23 11:58 Temperature Temperature Source Pulse Rate 72 Respiratory Rate 16 Blood Pressure BP Systolic BP Diastolic Pulse Ox 100 12/26/23 11:58 12/26/23 11:58 12/26/23 11:58 Temperature Temperature Source Pulse Rate 85 Respiratory Rate 16 Blood Pressure 104/63 BP Systolic 104 BP Diastolic 63 Pulse Ox 12/26/23 11:59 12/26/23 11:59 12/26/23 11:59 Temperature Temperature Source Pulse Rate 93 98 Respiratory Rate Blood Pressure 98/59 L BP Systolic 98 BP Diastolic 59 Pulse Ox 12/26/23 11:59 12/26/23 12:03 12/26/23 12:03 Temperature Temperature Source Pulse Rate 99 Respiratory Rate Blood Pressure 96/62 BP Systolic 96 BP Diastolic 62 Pulse Ox 89 12/26/23 12:03 12/26/23 12:05 12/26/23 12:05 Temperature Temperature Source Pulse Rate 80 Respiratory Rate Blood Pressure BP Systolic BP Diastolic Pulse Ox 100 89 12/26/23 12:08 12/26/23 12:08 12/26/23 12:09 Temperature Temperature Source Pulse Rate 117 H Respiratory Rate Blood Pressure 101/61 BP Systolic 101 BP Diastolic 61 Pulse Ox 100 12/26/23 12:09 12/26/23 12:13 12/26/23 12:13 Temperature Temperature Source Pulse Rate 84 88 Respiratory Rate Blood Pressure BP Systolic BP Diastolic Pulse Ox 100 12/26/23 12:13 12/26/23 12:13 12/26/23 12:18 Temperature Temperature Source Pulse Rate 81 79 Respiratory Rate Blood Pressure 103/66 BP Systolic 103 BP Diastolic 66 Pulse Ox 12/26/23 12:18 12/26/23 12:18 12/26/23 12:18 Temperature Temperature Source Pulse Rate 85 Respiratory Rate Blood Pressure 98/64 BP Systolic 98 BP Diastolic 64 Pulse Ox 100 12/26/23 12:22 12/26/23 12:22 12/26/23 12:23 Temperature Temperature Source Pulse Rate 108 H 96 Respiratory Rate Blood Pressure BP Systolic BP Diastolic Pulse Ox 94 12/26/23 12:23 12/26/23 12:24 12/26/23 12:24 Temperature Temperature Source Pulse Rate 77 Respiratory Rate Blood Pressure 102/63 BP Systolic 102 BP Diastolic 63 Pulse Ox 100 12/26/23 12:28 12/26/23 12:28 12/26/23 12:28 Temperature Temperature Source Pulse Rate 88 Respiratory Rate Blood Pressure 113/69 BP Systolic 113 BP Diastolic 69 Pulse Ox 100 12/26/23 12:28 12/26/23 12:33 12/26/23 12:33 Temperature Temperature Source Pulse Rate 70 96 Respiratory Rate Blood Pressure BP Systolic BP Diastolic Pulse Ox 100 12/26/23 12:34 12/26/23 12:34 12/26/23 12:38 Temperature Temperature Source Pulse Rate 70 101 H Respiratory Rate Blood Pressure 112/67 BP Systolic 112 BP Diastolic 67 Pulse Ox 12/26/23 12:38 Temperature Temperature Source Pulse Rate Respiratory Rate Blood Pressure BP Systolic BP Diastolic Pulse Ox 100 Weight Weight: 52.73 kg Body Mass Index (BMI) 23.4 Physical Exam Const alert and no apparent distress General Appearance: cooperative HEENT normocephalic Resp normal respiratory effort Cardio regular rate GI soft to palpation GI Narrative: gravid, nontender, appropriate for gestational age Extremity no calf tenderness General Extremity: edema Skin no wounds Rashes: No rashes noted Psych activity/motor behavior normal Labs Labs Labs: Blood Type A POSITIVE Antibody Screen NEGATIVE Hct 33.2 % (37-47) L Hgb 11.1 g/dL (12.0-15.0) L Syphilis Total Ab Non-reactive Assessment & Plan (1) Elective induction of labor planned: (2) 39 weeks gestation of : PLAN: Plan Pitocin induction Epidural prn GBS negative AROM prn
--- NOTE | 2023-12-26 13:12 | PN.OBGYN_ITS ---
Subjective Subjective AROM for clear fluid. Large amount. Epidural in place Ctx q 2-3. Decel follow arom with good recovery. Objective Data Objective Data Vital Signs: Vital Signs Temp Pulse Resp BP Pulse Ox 98.3 F 101 H 16 112/67 100 12/26/23 11:28 12/26/23 12:38 12/26/23 11:58 12/26/23 12:34 12/26/23 12:38 Weight: 52.73 kg Body Mass Index (BMI) 23.4 Intake & Output: Intake and Output for Last 24 Hours 12/24/23 12/25/23 12/26/23 23:59 23:59 23:59 Intake Total 155.91 / 155.91 Balance 155.91 / 155.91 Lab / Micro Data 12/26/23 08:05 Labs: Laboratory Results - last 24 hr 12/26/23 08:05: WBC 8.1, RBC 3.61 L, Hgb 11.1 L, Hct 33.2 L, MCV 92.0, MCH 30.7, MCHC 33.4, RDW Std Deviation 43.0, RDW Coeff of Shahriar 12.9, Plt Count 192, MPV 10.1, Immature Gran % (Auto) 0.700, Neut % (Auto) 76.4 H, Lymph % (Auto) 14.0 L, [place] % (Auto) 7.4, Eos % (Auto) 1.1, Baso % (Auto) 0.4, Absolute Neuts (auto) 6.2, Absolute Lymphs (auto) 1.13, Nucleated RBC % 0, Syphilis Total Ab Non- reactive, Blood Type A POSITIVE, Antibody Screen NEGATIVE NST FHR Rate Baby A Baseline: 140 Variability:: Moderate Accelerations:: 15 x 15 Decelerations:: Variable NST Reactive:: Yes FHR Category:: Category I and Category II Uterine Activity:: q 2-3 Assessment & Plan (1) 39 weeks gestation of : (2) Elective induction of labor planned:
[2023-12-26] MEDS: Famotidine 200 MG/20 ML MDV 20 MG in 0.9% Normal Saline (Pres. free 8 ML 300 MG IV (14:00)
--- NOTE | 2023-12-26 14:03 | PN.OBGYN_ITS ---
Subjective Subjective Pt complains of central chest pain. Vital sign stable. Does have a history of GERD with . Did not take her pepcid today. Objective Data Objective Data Vital Signs: Vital Signs Temp Pulse Resp BP Pulse Ox 97.4 F L 83 16 96/59 L 100 12/26/23 13:38 12/26/23 13:50 12/26/23 13:38 12/26/23 13:50 12/26/23 13:38 Weight: 52.73 kg Body Mass Index (BMI) 23.4 Intake & Output: Intake and Output for Last 24 Hours 12/24/23 12/25/23 12/26/23 23:59 23:59 23:59 Intake Total 1662.78 / 1662.78 Balance 1662.78 / 1662.78 Lab / Micro Data 12/26/23 08:05 Labs: Laboratory Results - last 24 hr 12/26/23 08:05: WBC 8.1, RBC 3.61 L, Hgb 11.1 L, Hct 33.2 L, MCV 92.0, MCH 30.7, MCHC 33.4, RDW Std Deviation 43.0, RDW Coeff of Shahriar 12.9, Plt Count 192, MPV 10.1, Immature Gran % (Auto) 0.700, Neut % (Auto) 76.4 H, Lymph % (Auto) 14.0 L, [place] % (Auto) 7.4, Eos % (Auto) 1.1, Baso % (Auto) 0.4, Absolute Neuts (auto) 6.2, Absolute Lymphs (auto) 1.13, Nucleated RBC % 0, Syphilis Total Ab Non- reactive, Blood Type A POSITIVE, Antibody Screen NEGATIVE ROS Constitutional Constitutional: Denies fatigue ENT HEENT: Denies dizziness Cardiovascular Cardiovascular: Reports chest pain; Denies dyspnea or lightheadedness Respiratory/Chest Respiratory/Chest: Reports cough; Denies dyspnea Gastrointestinal Gastrointestinal: Reports dyspepsia Physical Exam Const alert, oriented x3 and no apparent distress General Appearance: cooperative and comfortable Orientation / Consciousness: awake and oriented to person HEENT normocephalic and head/scalp atraumatic Eyes PERRL and EOMs intact bilaterally Chest inspection of chest normal Resp normal respiratory effort, normal air movement, no retractions, no use of accessory muscles and clear to auscultation bilaterally Effort and Inspection: able to speak in complete sentences Cardio regular rate and regular rhythm Neuro oriented x3 and CN's II-XII intact bilaterally Assessment & Plan (1) Elective induction of labor planned: (2) 39 weeks gestation of : PLAN: Plan Normal exam Pepcid ordered
[2023-12-26] MEDS: ePHEDrine Sulfate 50 MG/ML Ampul 10 MG IV ×2 (14:10→14:31)
[2023-12-26] MEDS: Ondansetron 4 MG/2 ML Vial IV ×2 (14:53→20:51)
[2023-12-26] MEDS: Lactated Ringers 1,000 ML 200 ML IV ×2 (15:31→20:44)
[2023-12-26] MEDS: Amnioinfusion- 0.9% NS 1,000 ML IV.SOLN. 1000 ML INTRA-UTER (17:23)
--- NOTE | 2023-12-26 17:30 | PCM.PN.OB ---
Subjective Subjective iupc placed for amnioinfusion to help with variables. Pitocin turned off. Cervix 6 cm asymmetric cervix, Cat II tracing. Improves with position changes. Moderate variability Objective Data Objective Data Vital Signs: Vital Signs Temp Pulse Resp BP Pulse Ox 98.8 F 82 16 102/63 99 12/26/23 16:20 12/26/23 16:55 12/26/23 16:20 12/26/23 16:55 12/26/23 16:25 Weight: 52.73 kg Body Mass Index (BMI) 23.4 Intake & Output: Intake and Output for Last 24 Hours 12/24/23 12/25/23 12/26/23 23:59 23:59 23:59 Intake Total 3498.81 / 3498.81 Output Total 1000 / 1000 Balance 2498.81 / 2498.81 Lab / Micro Data 12/26/23 08:05 Labs: Laboratory Results - last 24 hr 12/26/23 08:05: WBC 8.1, RBC 3.61 L, Hgb 11.1 L, Hct 33.2 L, MCV 92.0, MCH 30.7, MCHC 33.4, RDW Std Deviation 43.0, RDW Coeff of Shahriar 12.9, Plt Count 192, MPV 10.1, Immature Gran % (Auto) 0.700, Neut % (Auto) 76.4 H, Lymph % (Auto) 14.0 L, [place] % (Auto) 7.4, Eos % (Auto) 1.1, Baso % (Auto) 0.4, Absolute Neuts (auto) 6.2, Absolute Lymphs (auto) 1.13, Nucleated RBC % 0, Syphilis Total Ab Non-reactive, Blood Type A POSITIVE, Antibody Screen NEGATIVE Assessment & Plan (1) 39 weeks gestation of : (2) Elective induction of labor planned:
[2023-12-26] MEDS: DiphenhydrAMINE 50 MG/ML Syringe 25 MG IV (20:49)
[2023-12-26] MEDS: Acetaminophen 500 MG Tablet PO (21:19)
[2023-12-27] VITALS (26 sets, daily range): BP systolic 68–107; BP diastolic 35–82; PULSE 65–115; RESP 12–20; TEMP 36.4–37.1; O2SAT 97–100
[2023-12-27] MEDS: fentaNYL-bupivacaine (epidural) 100 ML BAG EPIDURAL (00:08)
--- NOTE | 2023-12-27 00:12 | PN.OBGYN_ITS ---
Subjective Subjective Intermittent category 2 with variable and intermittent late decel and then will have several contractions with accelerations. 8 cm on last exam. Comfortable with epidural. Several positions attempted to help rotate vertex and help fetus descend. Discussed possible c/s with patient if progress does not continue. Patient is not wanting to have a c/s at this time. Objective Data Objective Data Vital Signs: Vital Signs Temp Pulse Resp BP Pulse Ox 98.1 F 71 16 97/57 L 100 12/27/23 00:02 12/27/23 00:02 12/27/23 00:02 12/27/23 00:02 12/26/23 23:16 Weight: 52.73 kg Body Mass Index (BMI) 23.4 Intake & Output: Intake and Output for Last 24 Hours 12/25/23 12/26/23 12/27/23 23:59 23:59 23:59 Intake Total 4501.24 / 4501.24 Output Total 1500 / 1500 Balance 3001.24 / 3001.24 Lab / Micro Data 12/26/23 08:05 Labs: Laboratory Results - last 24 hr 12/26/23 08:05: WBC 8.1, RBC 3.61 L, Hgb 11.1 L, Hct 33.2 L, MCV 92.0, MCH 30.7, MCHC 33.4, RDW Std Deviation 43.0, RDW Coeff of Shahriar 12.9, Plt Count 192, MPV 10.1, Immature Gran % (Auto) 0.700, Neut % (Auto) 76.4 H, Lymph % (Auto) 14.0 L, [place] % (Auto) 7.4, Eos % (Auto) 1.1, Baso % (Auto) 0.4, Absolute Neuts (auto) 6.2, Absolute Lymphs (auto) 1.13, Nucleated RBC % 0, Syphilis Total Ab Non- reactive, Blood Type A POSITIVE, Antibody Screen NEGATIVE
--- NOTE | 2023-12-27 02:17 | FALS_PTH ---
PATIENT: MAURICE PUGH LOC: [facility] U#:[id number] AGE/SX: 38/F ROOM: WP007 RE12/26/[address]: Dr. Janelle Tinoco MD : 1985 BED: 1 DIS: 12/29/2023 SPEC #: [id number] RECD: 12/27/23 04:08 STATUS: JESSIE RASHEED #: [id number] OSCAR: 12/27/23 02:[address]: Janelle Tinoco DEPT: SURGICAL PATHOLOGY RECD BY: Mary Oleary ENTERED: 12/27/23 12:13 SP TYPE: FALL TUBES OTHR DR: No Primary Care Phys Tissues: Fallopian tube Procedures: Surgery Specimen Level II HEADER OPERATION: Primary section PRE-OP DIAGNOSIS: Tubal TISSUE SUBMITTED: Bilateral fallopian tubes MICROSCOPIC DIAGNOSIS Right and left fallopian tubes, bilateral salpingectomies: Complete cross-sections of fallopian tubes with benign paratubal cysts. AM: 12/28/2023 MICROSCOPIC DESCRIPTION Slides are reviewed. GROSS DESCRIPTION 3Received in fixative is one container labeled with the patient's name and designated bilateral fallopian tubes. The specimen consists of bilateral fallopian tubes including fimbrial ends. One fallopian tube measuring 6.0cm in length and 0.8cm in diameter. The second fallopian tube is similar in appearance and measures 6.0cm in length and 0.8cm in diameter. The fallopian tubes are not identified as right or left. Sections reveal unremarkable cut surfaces. Equipment Superintendent sections are submitted in two cassettes with each cassette containing one fallopian tube. / SJ: 12/27/2023 TC:5 CPT: 06840 x2
[2023-12-27] MEDS: Cefazolin 2 GM in 0.9% Normal Saline (100mL Bag) 100 ML IV (02:20)
[2023-12-27] MEDS: Methylergonovine 0.2 MG/ML Ampul IM (02:35)
[2023-12-27] MEDS: Azithromycin 500 MG in Dextrose 5%-Water (250mL Bag) 250 ML 250 MG IV (03:00)
[2023-12-27 03:03] LABS: Absolute Lymphocyte Count 1.01 X10^3/uL (0.83-4.51); Absolute Neutrophil Count 10.4 X10^3/uL (2.0-7.7); Basophil# 0.02 X10^3/uL; Basophil% 0.2 % (0-1); Hematocrit 24.6 % (37-47); Lymphocyte # 1.01 X10^3/ul (0.83-4.51); Lymphocyte % 8.1 % (19-41); Mean Corp Hgb Conc 32.5 g/dL (32-36); Mean Corpuscular Hgb 30.3 pg (27.0-32.0); Mean Corpuscular Volume 93.2 fL (81-99); Monocyte# 0.86 X10^3/uL; Monocyte% 6.9 % (0-10); NRBC Flagged by Analyzer 0 % (0-5); Neutrophil # 10.44 X10^3/uL (2.7-7.7); Neutrophil % 84.2 % (47-70); Platelet Count 196 K/mm3 (150-450); RBC Distribution Width CV 13.1 % (11.6-14.6); RBC Distribution Width SD 44.3 fl (35.1-43.9); Red Blood Count 2.64 M/mm3 (4.2-5.4); White Blood Count 12.4 K/mm3 (4.4-11.0)
[2023-12-27] MEDS: Oxytocin 15 Units/NS 250ml 15 UNITS/250 ML IV.SOLN 83 UNITS IV (03:35)
--- NOTE | 2023-12-27 03:44 | EX.PCM.OBRPT ---
Assessment & Plan (1) S/P primary low transverse : (2) 39 weeks gestation of : Maternal Data Information Final DEMIAN: 01/01/24 Gestational age: 39+2 Details Operative Information Date of Procedure: 12/27/23 Pre-Operative Diagnosis: intolerance to labor, desires sterilization Post-Operative Diagnosis: same Indications for : Desires elective sterilization, Distress and Failure of Descent Indications Narrative: Recurrent heart rate decelerations. Unable to continuously administer Pitocin due to intermittent Cat 2 tracing. Initially intermittent and not occurring with more than 50% of contractions. Amnioinfusion was used to help minimize the variables. After the amnio infusion was complete the variable occurred more frequently. Patient did progress to 8 cm however vertex remained at a high station despite multiple labor position changes. We were also limited by maternal hypotension after epidural placement that was resistant to IVF boluses and ephedrine. Classification: RAYRAY Procedure Type: low transverse (with bilateral salpingectomy) percussion instrument tuner #1: Mark Reveles Type of Anesthesia: Epidural Anesthesiologist: Jesús Osman Special Medications: methergine, hemoblast Antibiotic Given: Ancef 2 grams IV x1 and Zithromax 500 mg/5 mL X1 Drain: Rouse to straight drain Estimated Blood Loss: 800 cc Fluids Replaced: 1500 cc Procedure Start Time: :17 Procedure Stop Time: 03:06 Time of Delivery: :17 Findings Description of Procedure: Patient was taken to the OR with Epidural in placed. heart rate was in the 130s in the OR. Given her hypotension, the plan was to slowly dose her epidural. However there was a prolonged deceleration and the decision was made to urgently deliver. Betadine was splashed and the patient draped. Anesthesia was found to be adequate with an Allis clamp. A Pfannenstiel incision was then made with the scalpel and carried down through the fascia. Her muscles were divided in the midline. The peritoneum entered bluntly. A bladder blade was placed and a low transverse incision made in the lower uterine segment. The incision was extended laterally. The head was elevated through the incision. There was a loose cord across the shoulders. The cord was reduced to deliver the rest of the body. The infant cried immediately. The cord was clamped after one minute and handed to the nurse. The placenta was delivered with manual traction. The endometrial cavity was cleared of all clot and debris. The uterine incision was repaired with 1-0 vicryl in 2 layers. A vessel was suture ligated on the right side. The fallopian tubes were elevated with [place] clamps. The mesosalpinx was was ligated with the LigaSure from the fimbriated end to the cornua. The uterus was returned to the abdomen. A figure of 8 was used to obtain hemostasis. Hemoblast was placed over the incision. The peritoneum was closed with 3-0 Monocryl. The fascia was closed with 1-0 Vicryl. The subcutaneous tissue was closed with 2-0 Monocryl and the skin was closed with 4-0 Monocryl. Steris were placed over the incision. The patient received a dose of Methergine intra-op for atony which did resolve. Presentation: Positive for Vertex and ISIDRO Amniotic Membrane Rupture Type: Artificial Amniotic Fluid Description: Moderate meconium Placental Delivery Description: Expressed Placenta Disposition: [facility] Specimen(s) Sent to Pathology: tubes Cord Vessel Description: 3 Vessels Cord Entanglement: - (around the shoulders, loose) Cord Gases: ABG and VBG Infant A Gender: Female (1 minute): 9 (5 minute): 9 Delayed Cord Clamping: Yes Complications Risks of Surgery Discussed w/Patient: Permanency Complications: hypotension
[2023-12-27] MEDS: Ketorolac 30 MG/ML Syringe IV ×4 (04:00→22:00)
[2023-12-27] MEDS: Lactated Ringers 1,000 ML 100 ML IV (04:03)
[2023-12-27] MEDS: oxyCODONE 5 MG Tablet PO ×4 (05:27→19:50)
[2023-12-27] MEDS: Acetaminophen 500 MG Tablet 1000 MG PO ×3 (06:07→18:00)
[2023-12-27 07:19] LABS: Absolute Lymphocyte Count 0.71 X10^3/uL (0.83-4.51); Absolute Neutrophil Count 14.7 X10^3/uL (2.0-7.7); Basophil# 0.04 X10^3/uL; Basophil% 0.2 % (0-1); Hematocrit 19.9 % (37-47); Hemoglobin 6.6 g/dL (12.0-15.0); Lymphocyte # 0.71 X10^3/ul (0.83-4.51); Lymphocyte % 4.3 % (19-41); Mean Corp Hgb Conc 33.2 g/dL (32-36); Mean Corpuscular Volume 93.4 fL (81-99); Mean Platelet Vol. 10.5 fl (6.2-12.0); Monocyte# 0.86 X10^3/uL; Monocyte% 5.3 % (0-10); NRBC Flagged by Analyzer 0 % (0-5); Neutrophil # 14.65 X10^3/uL (2.7-7.7); Neutrophil % 89.6 % (47-70); Platelet Count 151 K/mm3 (150-450); RBC Distribution Width CV 12.9 % (11.6-14.6); RBC Distribution Width SD 43.2 fl (35.1-43.9); Red Blood Count 2.13 M/mm3 (4.2-5.4); White Blood Count 16.4 K/mm3 (4.4-11.0)
--- NOTE | 2023-12-27 07:37 | NURSING ---
Dory on unit and this RN updated provider on hgb drop from 8.0 to 6.6. Provider states patient will need a transfusion and will go to patient room and get verbal consent.
--- NOTE | 2023-12-27 07:48 | PCM.PN.OB ---
Subjective Subjective Repeat hgb is 6.6 down from 8. Given hypotension, discussed with pt blood transfusion. Most recent BP was 84/57, She is agreeable to 2 units. Objective Data Objective Data Vital Signs: Vital Signs Temp Pulse Resp BP Pulse Ox O2 Del Method 98.4 F 96 16 84/57 L 98 Room Air 12/27/23 07:37 12/27/23 07:02 12/27/23 07:37 12/27/23 07:37 12/27/23 07:37 12/27/23 07:37 Oxygen Delivery Method Room Air Weight: 52.73 kg Body Mass Index (BMI) 23.4 Intake & Output: Intake and Output for Last 24 Hours 12/25/23 12/26/23 12/27/23 23:59 23:59 23:59 Intake Total 5001.24 / 5001.24 1615 / 1615 Output Total 1500 / 1500 1300 / 1300 Balance 3501.24 / 3501.24 315 / 315 Lab / Micro Data 12/27/23 06:55 Labs: Laboratory Results - last 24 hr 12/26/23 08:05: WBC 8.1, RBC 3.61 L, Hgb 11.1 L, Hct 33.2 L, MCV 92.0, MCH 30.7, MCHC 33.4, RDW Std Deviation 43.0, RDW Coeff of Shahriar 12.9, Plt Count 192, MPV 10.1, Immature Gran % (Auto) 0.700, Neut % (Auto) 76.4 H, Lymph % (Auto) 14.0 L, [place] % (Auto) 7.4, Eos % (Auto) 1.1, Baso % (Auto) 0.4, Absolute Neuts (auto) 6.2, Absolute Lymphs (auto) 1.13, Nucleated RBC % 0, Syphilis Total Ab Non-reactive, Blood Type A POSITIVE, Antibody Screen NEGATIVE 12/27/23 02:45: WBC 12.4 H, RBC 2.64 L, Hgb 8.0 L, Hct 24.6 L, MCV 93.2, MCH 30.3, MCHC 32.5, RDW Std Deviation 44.3 H, RDW Coeff of Shahriar 13.1, Plt Count 196, MPV 10.0, Immature Gran % (Auto) 0.600, Neut % (Auto) 84.2 H, Lymph % (Auto) 8.1 L, [place] % (Auto) 6.9, Eos % (Auto) 0.0, Baso % (Auto) 0.2, Absolute Neuts (auto) 10.4 H, Absolute Lymphs (auto) 1.01, Nucleated RBC % 0 12/27/23 06:55: WBC 16.4 H, RBC 2.13 L, Hgb 6.6 L, Hct 19.9 L, MCV 93.4, MCH 31.0, MCHC 33.2, RDW Std Deviation 43.2, RDW Coeff of Shahriar 12.9, Plt Count 151, MPV 10.5, Immature Gran % (Auto) 0.600, Neut % (Auto) 89.6 H, Lymph % (Auto) 4.3 L, [place] % (Auto) 5.3, Eos % (Auto) 0.0, Baso % (Auto) 0.2, Absolute Neuts (auto) 14.7 H, Absolute Lymphs (auto) 0.71 L, Nucleated RBC % 0 ROS Constitutional Constitutional: Reports fatigue and weakness Cardiovascular Cardiovascular: Denies chest pain Respiratory/Chest Respiratory/Chest: Reports dry cough; Denies dyspnea Gastrointestinal Gastrointestinal: Denies nausea or vomiting Physical Exam Const alert, oriented x3 and no apparent distress HEENT normocephalic and head/scalp atraumatic Eyes PERRL and EOMs intact bilaterally Psych mental status grossly normal Assessment & Plan (1) S/P primary low transverse : (2) 39 weeks gestation of : (3) Postoperative anemia: PLAN: 2 units PRBCs
[2023-12-27] MEDS: 0.9% Normal Saline (1000mL) 1,000 ML 15 ML IV (08:56)
[2023-12-27] MEDS: 0.9% Saline Lock 10 ML Syringe IV ×3 (08:57→15:53)
[2023-12-27] MEDS: Senna/Docusate Sodium 1 Tablet PO (10:21)
[2023-12-27] MEDS: Famotidine 20 MG Tablet PO ×2 (10:21→22:28)
[2023-12-27] MEDS: Prenatal Vits Tablet 1 TABLET PO (11:47)
[2023-12-27 18:22] LABS: Absolute Lymphocyte Count 0.98 X10^3/uL (0.83-4.51); Absolute Neutrophil Count 15.5 X10^3/uL (2.0-7.7); Basophil# 0.06 X10^3/uL; Basophil% 0.3 % (0-1); Eosinophil# 0.01 X10^3/uL; Eosinophils% 0.1 % (0-5); Hematocrit 29.3 % (37-47); Hemoglobin 9.7 g/dL (12.0-15.0); Lymphocyte # 0.98 X10^3/ul (0.83-4.51); Lymphocyte % 5.5 % (19-41); Mean Corp Hgb Conc 33.1 g/dL (32-36); Mean Corpuscular Hgb 28.7 pg (27.0-32.0); Mean Corpuscular Volume 86.7 fL (81-99); Monocyte# 1.05 X10^3/uL; Monocyte% 5.9 % (0-10); NRBC Flagged by Analyzer 0 % (0-5); Neutrophil % 87.5 % (47-70); Platelet Count 144 K/mm3 (150-450); RBC Distribution Width CV 15.9 % (11.6-14.6); RBC Distribution Width SD 50.5 fl (35.1-43.9); Red Blood Count 3.38 M/mm3 (4.2-5.4); White Blood Count 17.7 K/mm3 (4.4-11.0)
[2023-12-27 18:37] LABS: POSITIVE COUNT NO; POSITIVE DIFFERENTIAL NO; POSITIVE MORPHOLOGY NO
[2023-12-28] MEDS: Acetaminophen 500 MG Tablet 1000 MG PO ×5 (00:24→23:50)
[2023-12-28] MEDS: oxyCODONE 5 MG Tablet PO ×4 (00:24→22:23)
[2023-12-28 00:25] VITALS: BP 94/62; PULSE 86; RESP 16; TEMP 36.4; O2SAT 98
[2023-12-28 03:40] VITALS: BP 96/66; PULSE 87; RESP 16; TEMP 36.6; O2SAT 98
[2023-12-28] MEDS: Ibuprofen 600 MG Tablet PO ×4 (05:17→23:50)
[2023-12-28 05:33] LABS: Hematocrit 28.7 % (37-47); Hemoglobin 9.6 g/dL (12.0-15.0); Mean Corp Hgb Conc 33.4 g/dL (32-36); Mean Corpuscular Hgb 28.7 pg (27.0-32.0); Mean Corpuscular Volume 85.9 fL (81-99); Platelet Count 157 K/mm3 (150-450); RBC Distribution Width SD 53.2 fl (35.1-43.9); Red Blood Count 3.34 M/mm3 (4.2-5.4); White Blood Count 19.6 K/mm3 (4.4-11.0)
[2023-12-28 07:51] VITALS: BP 93/72; PULSE 83; RESP 16; TEMP 36.6; O2SAT 99
[2023-12-28] MEDS: Senna/Docusate Sodium 1 Tablet PO (09:48)
[2023-12-28 11:57] LABS: Pathology Specimen OB SEE PATHOLOGY REPORT
[2023-12-28] MEDS: Prenatal Vits Tablet 1 TABLET PO (12:04)
--- NOTE | 2023-12-28 12:05 | PN.OBGYN_ITS ---
Subjective Subjective Pain controlled. Objective Data Objective Data Vital Signs: Vital Signs Temp Pulse Resp BP Pulse Ox O2 Del Method 97.9 F 83 16 93/72 99 Room Air 12/28/23 07:51 12/28/23 07:51 12/28/23 07:51 12/28/23 07:51 12/28/23 07:51 12/28/23 07:51 Oxygen Delivery Method Room Air Weight: 116 lb 4 oz Body Mass Index (BMI) 23.4 Intake & Output: Intake and Output for Last 24 Hours 12/26/23 12/27/23 12/28/23 23:59 23:59 23:59 Intake Total 5001.24 / 5001.24 3615 / 3615 Output Total 1500 / 1500 1600 / 1600 Balance 3501.24 / 3501.24 2014 Lab / Micro Data 12/28/23 05:24 Labs: Laboratory Results - last 24 hr 12/26/23 08:05: Crossmatch See Detail 12/27/23 18:10: WBC 17.7 H, RBC 3.38 L, Hgb 9.7 L, Hct 29.3 L, MCV 86.7 D, MCH 28.7, MCHC 33.1, RDW Std Deviation 50.5 H, RDW Coeff of Shahriar 15.9 H, Plt Count 144 L, MPV 10.0, Immature Gran % (Auto) 0.700, Neut % (Auto) 87.5 H, Lymph % (Auto) 5.5 L, [place] % (Auto) 5.9, Eos % (Auto) 0.1, Baso % (Auto) 0.3, Absolute Neuts (auto) 15.5 H, Absolute Lymphs (auto) 0.98, Nucleated RBC % 0 12/28/23 05:24: WBC 19.6 H, RBC 3.34 L, Hgb 9.6 L, Hct 28.7 L, MCV 85.9, MCH 28.7, MCHC 33.4, RDW Std Deviation 53.2 H, RDW Coeff of Shahriar 17.0 H, Plt Count 157, MPV 10.0 Physical Exam Const alert, oriented x3 and no apparent distress HEENT normocephalic GI soft to palpation, non-tender and non-distended GI Narrative: fundus firm, mid & below umbilicus Incision - bandage c/d/i Extremity normal to inspection and no calf tenderness Assessment & Plan (1) S/P primary low transverse : COMMENT: POD#1 PLAN: Plan Heme - HDS, start iron for anemia. ID - AF< no signs infection. GI/ - routine care
--- NOTE | 2023-12-28 13:07 | NURSING ---
Reviewed student charting.
[2023-12-28] MEDS: Ondansetron 4 MG/2 ML Vial IV (14:01)
[2023-12-28] MEDS: Famotidine 20 MG Tablet PO ×2 (14:01→22:23)
[2023-12-28] MEDS: 0.9% Saline Lock 10 ML Syringe IV (14:02)
[2023-12-28 14:12] VITALS: BP 99/70; PULSE 79; RESP 16; TEMP 36.2
--- NOTE | 2023-12-28 15:24 | CASEMGMT ---
Social Work Assessment Labor and Delivery Unit Patient Address:[address] [place] [address] Phone number: [phone] Date of Referral: 12/27/23 Time of Referral:? 1623 Referred By: Janelle Tinoco Date of Intervention: ??12/28/23 Time of Intervention:? 1200 Reason for Referral:? hx anxiety Bony completed chart review and acknowledges social work consult due to maternal mental health history. Sw presented to bedside and introduced self to mother of baby (KAMERON- Sarika). MOB had a visitor present and stated that it was her aunt and it was okay to complete assessment with her present. Sw completed psychosocial assessment. History obtained from: medical records and mother of baby (KAMERON)??? Household composition: Currently residing in family home is MOB, father of baby (KENNY- Moises Baumann), and KAMERON's three older daughters: Sue- 14, Gloria- 12 and Carolynn- 9. baby to be added to residence when ready for discharge. KAMERON denies any issues or concerns with housing at this time. Patient's parent/guardian status:?KAMERON states that she and KENNY have been together for almost 9 years after knowing each other from school. MOB denies any issues or concerns with domestic violence or intimate partner violence. This is FOB's first child, MOB's fourth. ? Medical History: KAMERON is 38 year old female who is 5, para 3- now 4 following labor and delivery of . KAMERON received routine care during with [facility]. KAMERON presented to hospital for an induction of labor at 39 weeks gestation. KAMERON required emergency due to failure to descent. Baby girl, named Fawn Shea, was born weighing 7lb 15oz with apgars of 9 and 9 at one and five minutes of life respectfully. KAMERON is bottle feeding baby and states that baby will be followed by Dr. Cheng for pediatrics. ? Educational Status: MOB states that both parents graduated from high school, no college education. No concerns with reading, learning or comprehension. ? Financial Status: KAMERON states that both parents are gainfully employed outside of the home. KAMERON works at [employer] in [place] and is able to take time off of work for her maternity leave. KENNY works at [employer]. Supplies: KAMERON states that she has obtained all necessary baby supplies, including: car seat, safe sleep space, clothes, diapers and wipes. Childcare/Caregiver(s):?MOB will be be the primary caregiver to baby along with FOB. When both parents are working they have family members and friends who will watch baby. Transportation:?? KAMERON states that she and FOB both have their drivers license and reliable means of transportation. No barriers at this time. Programs/Agencies Involved: ??MOB is connected to insurance through [employer] [facility] [employer] ([employer]) and [employer]. MOB is also connected to WIC in [employer]. ? Children Services/Legal Issues:???No history of involvement with Children Services, no issues or concerns warranting referral to be made at this time. Behavioral Health Issues: ??Mental Health History: MOB states that KENNY does not have any mental health diagnoses. MOB initially denied any mental health history, including anxiety or depression.?When discussing further KAMERON disclosed that she has had some anxiety within her lifetime, but nothing that she was not able to work through. Substance Use History:?MOB denies substance use prior to and during . ? Family History:??MOB denies family history of addiction or significant mental health diagnoses. ??? Drug Screens: No drug screens observed in chart review. Family/Social Stressors:?MOB denies any issues or concerns at this time. Support Systems: MOB identifies several people are supports: aunt, dad, brother, neighbor and best friend. Depression/Shaken Baby/Safe Sleeping: Sw educated MOB on signs and symptoms of baby blues and mood and anxiety disorders to be mindful of going into this period. MOB states that she has heard the terms and is familiar with symptoms to be mindful of. Sw educated MOB on shaken baby prevention and ABCs of safe sleep. MOB expressed understanding. ASSESSMENT:? MOB and baby admitted following labor and delivery. MOB initially moving around room looking for bow for baby, and then sat on bed stating that she is getting sore from unanticipated . Aunt also present and holding baby lovingly and appropriately during completion of assessment. MOB made eye contact with sw, answered questions minimally and did not engage in ongoing conversation. MOB has everything that she needs for baby and natural supports in place. PLAN:? No other services requested or indicated. MOB and baby to be discharged when medically ready. Parents were provided literature regarding: signs and symptoms of baby blues and mood and anxiety disorders, Help Me Grow, shaken baby prevention, ABCs of safe sleep and a list of [facility] resources that are available for them should any needs present themselves. ? Rafia Mcghee, TILE MECHANIC, COPY WRITER
[2023-12-28 19:45] VITALS: BP 98/63; PULSE 85; RESP 16; TEMP 36.8; O2SAT 99
[2023-12-29 02:10] VITALS: BP 99/74; PULSE 95; RESP 16; TEMP 36.3; O2SAT 99
[2023-12-29] MEDS: Ibuprofen 600 MG Tablet PO (06:00)
[2023-12-29] MEDS: Acetaminophen 500 MG Tablet 1000 MG PO (06:00)
[2023-12-29 08:27] VITALS: BP 98/64; PULSE 85; RESP 14; TEMP 36.6; O2SAT 100
--- NOTE | 2023-12-29 08:52 | PCM.PROGNOTE ---
Subjective Subjective patient seen at bedside, doing well. Patient reports good pain control. lochia mild. denies dizziness when ambulating. Objective Data Objective Data Vital Signs: Vital Signs Temp Pulse Resp BP Pulse Ox O2 Del Method 97.9 F 85 14 98/64 100 Room Air 12/29/23 08:27 12/29/23 08:27 12/29/23 08:27 12/29/23 08:27 12/29/23 08:27 12/29/23 08:27 Oxygen Delivery Method Room Air Weight: 52.73 kg Body Mass Index (BMI) 23.4 Intake & Output: Intake and Output for Last 24 Hours 12/27/23 12/28/23 12/29/23 23:59 23:59 23:59 Intake Total 3615 / 3615 Output Total 1600 / 1600 Balance 2014 Lab / Micro Data 12/28/23 05:24 Physical Exam Narrative abd: fundus firm. dressing dry and intact. Const alert and oriented x3 General Appearance: cooperative HEENT normocephalic Neck General: normal visual inspection GI soft to palpation and non-distended GI Narrative: Fundus firm Extremity normal to inspection and no calf tenderness Skin no rashes or lesions noted Neuro oriented x3 and CN's II-XII intact bilaterally Psych mental status grossly normal Assessment & Plan Assessment/Plan (1) Postoperative anemia: (2) S/P primary low transverse : (3) Acute on chronic blood loss anemia: PLAN: Plan POD# 2 , Doing well s/p blood transfusion Routine care pain mgmt monitor VS ambulation continue po iron reviewed with patient after dc home
--- NOTE | 2023-12-29 08:55 | DS.PCM_ITS ---
Discharge Summary Date of Admission: 12/26/23 Date of Discharge: 12/29/23 Summary: Patient was admitted to [facility] on 12/26/2023 for elective induction of labor she underwent a primary section that was uncomplicated she ultimately had acute on chronic blood loss anemia that was symptomatic and received 2 units of packed red blood cells. She did well and was discharged home on postoperative day #2 in stable condition. Meaningful Use Info Meaningful Use Meaningful Use Diagnoses (Choose all that apply): None applicable Ischemic Stroke Statin Dosing Therapy Reference: STATIN DOSE THERAPY REFERENCE: * Patients > 75 years receive moderate or high dose statin therapy. * Patients 75 years or YOUNGER should receive HIGH intensity statin dose unless contraindicated. You will be required to document reason for non-treatment if statin daily dose does not meet guidelines. HIGH DOSE STATIN THERAPY DAILY Atorvastatin > than or = to 40 mg Rosuvastatin > than or = to 20 mg Amlodipine + Atorvastatin > than or = to 2.5/40 mg Ezetimibe + Simvastatin 10/80 mg Simvastatin 80mg Discharge Plan Admission Admit Date/Time: 12/26/23 07:23 Attending Provider: Janelle Tinoco Primary Care Provider: Care Physician,Enriqueta Primary Discharge Orders/Prescriptions Prescriptions: No Action defjvnsd-nna-Uc-FA 1 mg tablet 1 tab PO DAILY famotidine 20 mg tablet 20 mg PO BID acetaminophen 500 mg capsule 1,000 mg PO Q6H PRN (Reason: fever or pain) cephalexin 500 mg capsule PO .500 Patient Comments: PLEASE SEE ATTACHED FOR DETAILED DIRECTIONS Referrals / Follow Up: Care Physician,No Primary [Primary Care Provider] -
--- NOTE | 2023-12-29 08:56 | DCINST_ITS ---
Discharge Instructions Diet Discharge Diet: No restrictions Activity May resume sexual activity in: 6-8 weeks Lifting Restrictions: 25 Dressing / Incision Call your doctor if your incision/area has: Continuous Slow Oozing, Sudden Increased Bleeding, Increased Pain/ Swelling, Increased Redness, Foul Smelling Discharge and Swelling at the incision site Call your doctor if you observe: Fever of 101 or Higher, Inability to urinate, Using more than 1 pad per hour and Uncontrolled pain Additional Dressing/Incision Instructions:: remove dressing at 7 days post op- if it becomes saturated prior to that time you may remove it. Let soap and water run over incision sites and dab dry. keep incision clean and dry. Follow Up Care Please Follow Up With: Angelika Box MD When: 1-2 weeks post of incision check and again at 6 weeks post . [phone] Test Results: Test results from this visit will be discussed in further detail at your follow- up appointment, if applicable. Discharge Plan Admission Admit Date/Time: 12/26/23 07:23 Attending Provider: Janelle Tinoco Primary Care Provider: Care Physician,Enriqueta Primary Discharge Orders/Prescriptions Prescriptions: New sennosides-docusate sodium [Stimulant Laxative Plus] 8.6-50 mg Tablet 1 - 2 tab PO DAILY Qty: 0 0RF ibuprofen 600 mg Tablet 600 mg PO Q6H Qty: 0 0RF simethicone 80 mg Tablet,Chewable 80 mg PO PCHS PRN (Reason: Indigestion/stomach pain) Qty: 0 0RF oxycodone 5 mg Tablet 5 - 10 mg PO Q4H PRN PRN (Reason: Pain Score 4-10) 5 Days Qty: 10 0RF ferrous sulfate 325 mg (65 mg iron) tablet 325 mg PO DAILY Qty: 30 2RF Continued csigrvnh-nvp-Vq-FA 1 mg tablet 1 tab PO DAILY famotidine 20 mg tablet 20 mg PO BID acetaminophen 500 mg capsule 1,000 mg PO Q6H PRN (Reason: fever or pain) Discontinued cephalexin 500 mg capsule PO .500 Patient Comments: PLEASE SEE ATTACHED FOR DETAILED DIRECTIONS Referrals / Follow Up: Care Physician,No Primary [Primary Care Provider] - Disposition Disposition (needs filled in before D/C Order can be placed): Home, Self Care
--- NOTE | 2024-02-21 08:18 | NURSING ---
Updated Surgical wound classification to Contaminated due to betadine splash for prep
== END 2023-12-29 10:15 | disposition home or self-care (01) | DRG 539 ==
PROVIDERS: Advanced Practice Midwife; Admitting Provider Obstetrics & Gynecology; Visit Provider Obstetrics & Gynecology
DX: O76 Abnormality in fetal heart rate and rhythm complicating labor and delivery (principal); D62 Acute posthemorrhagic anemia; O26.53 Maternal hypotension syndrome, third trimester; Z30.2 Encounter for sterilization; O77.0 Labor and delivery complicated by meconium in amniotic fluid; O99.02 Anemia complicating childbirth; Z3A.39 39 weeks gestation of pregnancy; O32.4XX0 Maternal care for high head at term, not applicable or unspecified; O26.23 Pregnancy care for patient with recurrent pregnancy loss, third trimester; Z87.891 Personal history of nicotine dependence
CPT/HCPCS: 59025; 59050; 85025; 85027; 86780; 86850; 86900; 86901; 86920; 88302; 99221; J7030; J7120; P9016; A4216; G0378; J2405; J3490